=== PATIENT | female | born 1965 | race Caucasian/White ===

== ENCOUNTER 2020-12-01 21:45 | Emergency (ER) | payer OTHER, SELFPAY ==
[2020-12-01 21:46] VITALS: BP 154/78; PULSE 101; RESP 24; TEMP 36.8; O2SAT 96; BMI 42.0
[2020-12-01 21:49] VITALS: BMI 89.8
--- NOTE | 2020-12-01 21:51 | XR_ITS ---
PROCEDURE INFORMATION: Exam: XR Chest Exam date and time: 12/01/2020 9:51 PM Age: 55 years old Clinical indication: Cough and shortness of breath; Additional info: SOA, dry cough TECHNIQUE: Imaging protocol: XR of the chest. Views: 2 views. COMPARISON: No relevant prior studies available. FINDINGS: Lungs: Interstitial coarsening with patchy opacity within the right mid to lower lung zone. Pleural spaces: Unremarkable. No pleural effusion. No pneumothorax. Heart/Mediastinum: Prominent cardiac silhouette. Bones/joints: Unremarkable. IMPRESSION: Interstitial coarsening with patchy opacity within the right mid to lower lung zone which can be seen with pneumonitis or potentially asymmetric edema. Clinical correlation with follow-up to radiographic clearance is recommended.
--- NOTE | 2020-12-01 21:53 | ECG_ITS ---
APPROVED REPORT Exam: Resting ECG HR:100 bpm ECG Measurements Heart Rate 100 AXES MN 166 P 64 QRSd 82 QRS 38 QT 354 T 127 QTc 456 Conclusion Normal sinus rhythm Possible Left atrial enlargement ST & T wave abnormality, consider lateral ischemia Abnormal ECG Electronically signed by : Carlos Eduardo Stewart MD 12/03/2020 10:57:56
[2020-12-01 22:06] LABS: Coronavirus 19, PCR Not Detected (NotDetected); Influenza A, PCR Not Detected (NotDetected); Influenza B, PCR Not Detected (NotDetected)
[2020-12-01 22:12] LABS: Basophils # 0.1 K/mm3 (0-0.2); Basophils % 0.4 % (0.1-2.0); Eosinophils # 0.4 K/mm3 (0.0-0.4); Eosinophils % 1.9 % (0.1-12.0); Hematocrit 42.6 % (37.0-47.0); Hemoglobin 14.4 g/dL (12.2-16.2); Lymphocytes # 1.3 K/mm3 (0.7-4.5); Lymphocytes % 6.9 % (10-50); Mean Corpuscular HGB Conc 33.7 g/dL (31.8-35.4); Mean Corpuscular Hemoglobin 30.1 pg (27.0-31.2); Mean Corpuscular Volume 89.5 fl (81-99); Mean Platelet Volume 8.6 fl (7.4-10.4); Monocytes # 0.7 K/mm3 (0.1-1.0); Monocytes % 3.4 % (1.7-9.3); Neutrophils # 16.9 K/mm3 (1.8-7.8); Neutrophils % 87.4 % (37.0-80.0); Platelet Count 363 K/mm3 (142-424); Red Blood Count 4.76 M/mm3 (4.20-5.40); Red Cell Distribution Width 13.5 % (11.5-17.5); White Blood Count 19.3 K/mm3 (4.8-10.8)
[2020-12-01 22:14] LABS: MANUAL DIFFERENTIAL MANUAL DIFFERENTIAL (MANUAL DIFF)
[2020-12-01 22:19] LABS: Alanine Aminotransferase 23 U/L (12-78); Albumin Level 3.7 g/dl (3.5-5.0); Alkaline Phosphatase 165 U/L (38-126); Anion Gap 10.4 mEq/L (5-15); Aspartate Amino Transferase 40 U/L (14-36); Bilirubin,Total 0.9 mg/dl (0.2-1.3); Blood Urea Nitrogen 4 mg/dl (7-17); Calcium 8.9 mg/dl (8.4-10.2); Carbon Dioxide 29 mmol/L (22.0-30.0); Chloride 102 mmol/L (98-107); Creatinine Clearance Estimated 108 mL/min (50-200); Estimated Glomerular Filt Rate 129 ml/min (>60); GFR (African American) 156 ML/MIN (>60); Globulin 3.7 g/dL (1.3-3.2); Glucose 230 mg/dl (74-100); Magnesium 1.5 mg/dl (1.6-2.3); Potassium 3.4 mmoL/L (3.5-5.1); Sodium 138 mmol/L (136-145); Total Protein,Serum 7.4 g/dl (6.3-8.2)
[2020-12-01 22:22] LABS: Lymphocytes % 13 % (10-50); Monocytes % 4 % (2-9); Neutrophils % 71 % (42-76); Platelet Estimate Normal; RBC Morphology Normal; Total Cells Counted 100
--- NOTE | 2020-12-01 22:22 | HMH.EDSOB ---
ED Disposition Clinical Impression: Acute exacerbation of chronic obstructive airways disease Community acquired pneumonia Qualifiers: Laterality: right Lung location: lower lobe of lung Qualified Code(s): J18.9 - Pneumonia, unspecified organism Disposition: Left Against Medical Advice Condition on Discharge: Good Instructions: DI for Chronic Obstructive Pulmonary Disease Additional Instructions: use meds and recheck if needed Prescriptions: levoFLOXacin [Levaquin 500mg tab] 500 mg PO DAILY #7 tab Transmission Status: Pending to [facility] predniSONE [Prednisone 20mg Tab] 20 mg PO BID #10 tab Transmission Status: Pending to [facility] Benzonatate [Tessalon Perle 100mg Cap] 100 mg PO TID #30 cap Transmission Status: Pending to [facility] Referrals: Provider,Referral, [Primary Care Provider] - - Critical Care Critical Care Time: No Attestation: On , the high probability of a clinically significant, sudden or life threatening deterioration of the following system(s) required my full and direct attention, intervention and personal management. The time I documented below is in addition to time spent performing reported procedures but includes the following listed in this critical care notation. Medical Decision Making - Medical Records Medical records reviewed: Yes: I reviewed the patient's medical records. - Ray Inquiry Pt receiving controlled substance: No Vital Signs: 12/01/20 21:46 12/01/20 22:45 Temperature 98.3 F Temperature Source Oral Pulse Rate 100 H Pulse Rate [Right] 101 H Respiratory Rate 24 Blood Pressure [Left Arm] 154/78 H Blood Pressure Mean [Left Arm] 103 Blood Pressure Source [Left Arm] Automatic Cuff 02 Sat by Pulse Oximetry 96 Oxygen Delivery Method Room Air - Lab Data Lab results reviewed: Yes: I reviewed the patient's lab results. Lab Results 12/01/20 22:00: WBC 19.3 H, RBC 4.76, Hgb 14.4, Hct 42.6, MCV 89.5, MCH 30.1, MCHC 33.7, RDW 13.5, Plt Count 363, MPV 8.6, Neut % (Auto) 87.4 H, Lymph % (Auto) 6.9 L, [place] % (Auto) 3.4, Eos % (Auto) 1.9, Baso % (Auto) 0.4, Neut # (Auto) 16.9 H, Lymph # (Auto) 1.3, [place] # (Auto) 0.7, Eos # (Auto) 0.4, Baso # (Auto) 0.1, Total Counted 100, Neutrophils % (Manual) 71, Band Neutrophils % 12.0 H, Lymphocytes % (Manual) 13, Monocytes % (Manual) 4, Platelet Estimate Normal, RBC Morphology Normal, ESR 31 H 12/01/20 22:00: Sodium 138, Potassium 3.4 L, Chloride 102, Carbon Dioxide 29, Anion Gap 10.4, BUN 4 L, Creatinine 0.50 L, Estimated Creat Clear 108, Estimated GFR 129, Est GFR ( Amer) 156, Glucose 230 H, Calcium 8.9, Magnesium 1.5 L, Total Bilirubin 0.9, AST 40 H, ALT 23, Alkaline Phosphatase 165 H, Troponin I 0.02, C-Reactive Protein 276.8 H, NT-Pro-B Natriuret Pep 460 H, Total Protein 7.4, Albumin 3.7, Globulin 3.7 H, Albumin/Globulin Ratio 1.0 L, Procalcitonin 0.384 12/01/20 22:00: SARS-CoV-2 (PCR) Not detected, Influenza A Untype (PCR) Not detected, Influenza Type B (PCR) Not detected Result diagrams: 12/01/20 22:00 12/01/20 22:00 Orders (Tests/Meds): ED MEDICATIONS Generic Name Dose Route Start Last Admin Trade Name Freq PRN Reason Stop Dose Admin Sodium Chloride 1,000 mls @ 999 mls/hr 12/01/20 22:00 Sod Chlor 0.9% 1000ml Bag IV 12/01/20 23:00 .Q1H1M WILDER Discontinued Medications Generic Name Dose Route Start Last Admin Trade Name Freq PRN Reason Stop Dose Admin Albuterol/Ipratropium 3 ml 12/01/20 22:45 12/01/20 22:45 Ipratropium/Albuterol 3 Ml Neb IH 12/01/20 22:46 3 ml ONCE ONE Administration ORDERS Category Date Time Status Troponin I Q3H Lab 12/02/20 01:00 Ordered Troponin I Q3H Lab 12/02/20 04:00 Ordered Urinalysis and Microscopic Stat Lab 12/01/20 21:52 Ordered ECG Request by /Nse Stat Y 12/01/20 21:53 Ordered - Radiology Data #1 Image(s): Chest Image Reviewed: Yes I have reviewed radiologist's interpretati
[2020-12-01 22:24] LABS: C-Reactive Protein 276.8 mg/L (0-4)
[2020-12-01 22:34] LABS: NT Pro Brain Natriuretic Pep. 460 pg/mL (0-125); Troponin I 0.02 ng/ml (0.00-0.034)
[2020-12-01 22:38] LABS: Erythrocyte Sedimentation Rate 31 mm/hr (0-30); Procalcitonin 0.384 ng/mL (0.0-2.0)
[2020-12-01 22:45] VITALS: PULSE 100
--- NOTE | 2020-12-01 23:16 | PC.NURSE ---
Pt's IV has infiltrated, she refuses additional IV stick/placement. She has not received IV ABX yet, as she is refusing another IV. aware and ordered Levaquin PO. Pt has signed an AMA paper.
[2020-12-01 23:29] VITALS: BP 139/72; PULSE 90; RESP 22; TEMP 36.7; O2SAT 95
== END 2020-12-01 23:37 | disposition left against medical advice (07) ==
PROVIDERS: Emergency Provider Emergency Medicine
DX: J44.1 Chronic obstructive pulmonary disease with (acute) exacerbation (principal); J18.9 Pneumonia, unspecified organism; Z20.822 Contact with and (suspected) exposure to COVID-19; Z88.0 Allergy status to penicillin
CPT/HCPCS: 71046; 80053; 83735; 83880; 84145; 84484; 85007; 85025; 85651; 86140; 93005; 96365; 96375; 99283; C9803; U0003; U0005

== ENCOUNTER 2020-12-02 17:09 | Inpatient (IN) | payer OTHER, SELFPAY ==
[2020-12-02 17:10] VITALS: BP 161/89; PULSE 121; RESP 16; TEMP 36.8; O2SAT 93; BMI 45.1
--- NOTE | 2020-12-02 17:58 | XR_ITS ---
PROCEDURE INFORMATION: Exam: XR Chest Exam date and time: 12/02/2020 5:58 PM Age: 55 years old Clinical indication: Cough and shortness of breath and other: Pneumonia; Smoker's cough; Patient HX: Cough; SOA; Pneumonia; Smoker TECHNIQUE: Imaging protocol: XR of the chest. Views: 2 views. COMPARISON: CR XR CHEST 2V 12/01/2020 9:47 PM FINDINGS: Lungs: Airspace consolidation in the right middle lobe. Faint infiltrates also seen throughout the left lung. Pleural spaces: Unremarkable. No pleural effusion. No pneumothorax. Heart/Mediastinum: Unremarkable. No cardiomegaly. Bones/joints: Unremarkable. IMPRESSION: Bilateral pneumonia has worsened slightly.
[2020-12-02 18:30] VITALS: BP 151/74; PULSE 110; RESP 20; O2SAT 93
[2020-12-02 19:05] LABS: Basophils # 0.1 K/mm3 (0-0.2); Basophils % 0.3 % (0.1-2.0); Hematocrit 44.8 % (37.0-47.0); Lymphocytes # 0.7 K/mm3 (0.7-4.5); Lymphocytes % 3.8 % (10-50); Mean Corpuscular HGB Conc 33.5 g/dL (31.8-35.4); Mean Corpuscular Hemoglobin 29.6 pg (27.0-31.2); Mean Corpuscular Volume 88.4 fl (81-99); Mean Platelet Volume 9.3 fl (7.4-10.4); Monocytes # 0.5 K/mm3 (0.1-1.0); Monocytes % 2.6 % (1.7-9.3); Neutrophils # 17.3 K/mm3 (1.8-7.8); Neutrophils % 93.3 % (37.0-80.0); Platelet Count 427 K/mm3 (142-424); Red Blood Count 5.07 M/mm3 (4.20-5.40); Red Cell Distribution Width 13.5 % (11.5-17.5); White Blood Count 18.6 K/mm3 (4.8-10.8)
[2020-12-02 19:11] LABS: Alanine Aminotransferase 34 U/L (12-78); Albumin Level 4.1 g/dl (3.5-5.0); Alkaline Phosphatase 211 U/L (38-126); Anion Gap 15.1 mEq/L (5-15); Aspartate Amino Transferase 46 U/L (14-36); Bilirubin,Total 0.4 mg/dl (0.2-1.3); Blood Urea Nitrogen 8 mg/dl (7-17); Calcium 9.4 mg/dl (8.4-10.2); Carbon Dioxide 27 mmol/L (22.0-30.0); Chloride 100 mmol/L (98-107); Creatinine Clearance Estimated 102 mL/min (50-200); Estimated Glomerular Filt Rate 105 ml/min (>60); GFR (African American) 127 ML/MIN (>60); Potassium 3.1 mmoL/L (3.5-5.1); Sodium 139 mmol/L (136-145); Total Protein,Serum 8.1 g/dl (6.3-8.2)
[2020-12-02 19:18] LABS: Lactic Acid 2.2 mmol/L (0.7-2.1)
[2020-12-02 19:19] LABS: Glucose 434 mg/dl (74-100)
[2020-12-02 19:27] LABS: MANUAL DIFFERENTIAL MANUAL DIFFERENTIAL (MANUAL DIFF)
[2020-12-02 19:40] LABS: Lymphocytes % 2 % (10-50); Monocytes % 3 % (2-9); Neutrophils % 95 % (42-76); Total Cells Counted 100
[2020-12-02 19:41] LABS: Platelet Estimate Normal; RBC Morphology Normal
--- NOTE | 2020-12-02 19:44 | PC.NURSE ---
RESP CALLED FOR NEB
--- NOTE | 2020-12-02 19:52 | HMH.EDGENADL ---
ED Disposition Clinical Impression: Hyperglycemia PNA (pneumonia) Qualifiers: Pneumonia type: due to unspecified organism Laterality: bilateral Lung location: unspecified part of lung Qualified Code(s): J18.9 - Pneumonia, unspecified organism Sepsis Qualifiers: Sepsis type: sepsis due to unspecified organism Sepsis acute organ dysfunction status: without acute organ dysfunction Qualified Code(s): A41.9 - Sepsis, unspecified organism Disposition: Admitted As Inpatient Condition on Discharge: Good Referrals: Provider,Referral, MD [Primary Care Provider] - Time of Disposition: 20:13 - Critical Care Critical Care Time: Yes (35) Attestation: On 12/02/20, the high probability of a clinically significant, sudden or life threatening deterioration of the following system(s) required my full and direct attention, intervention and personal management. The time I documented below is in addition to time spent performing reported procedures but includes the following listed in this critical care notation. Vital system(s) involved:: Respiratory Failure My critical care processes included: Assessment & monitoring of V/S, Initial and Re-exams, Data Review/Interpretation, Coordinating Care, Medication Orders and management, Documentation Medical Decision Making - Medical Records Medical records reviewed: Yes: I reviewed the patient's medical records. - Ray Inquiry Pt receiving controlled substance: No Vital Signs: 12/02/20 17:10 Temperature 98.2 F Temperature Source Oral Pulse Rate [Right Radial] 121 H Respiratory Rate 16 Blood Pressure [Left Arm] 161/89 H Blood Pressure Mean [Left Arm] 113 Blood Pressure Source [Left Arm] Automatic Cuff Blood Pressure Position [Left Arm] Sitting 02 Sat by Pulse Oximetry 93 L Oxygen Delivery Method Room Air - Lab Data Lab results reviewed: Yes: I reviewed the patient's lab results. Lab Results 12/02/20 18:35: WBC 18.6 H, RBC 5.07, Hgb 15.0, Hct 44.8, MCV 88.4, MCH 29.6, MCHC 33.5, RDW 13.5, Plt Count 427 H, MPV 9.3, Neut % (Auto) 93.3 H, Lymph % (Auto) 3.8 L, [place] % (Auto) 2.6, Eos % (Auto) 0.0 L, Baso % (Auto) 0.3, Neut # (Auto) 17.3 H, Lymph # (Auto) 0.7, [place] # (Auto) 0.5, Eos # (Auto) 0.0, Baso # (Auto) 0.1, Total Counted 100, Neutrophils % (Manual) 95 H, Lymphocytes % (Manual) 2 L, Monocytes % (Manual) 3, Platelet Estimate Normal, RBC Morphology Normal 12/02/20 18:35: Sodium 139, Potassium 3.1 L, Chloride 100, Carbon Dioxide 27, Anion Gap 15.1 H, BUN 8 D, Creatinine 0.60, Estimated Creat Clear 102, Estimated GFR 105, Est GFR ( Amer) 127, Glucose 434 H* D, Calcium 9.4, Total Bilirubin 0.4, AST 46 H, ALT 34 D, Alkaline Phosphatase 211 H, Total Protein 8.1, Albumin 4.1 D, Globulin 4.0 H, Albumin/Globulin Ratio 1.0 L 12/02/20 18:35: Lactate 2.2 H Result diagrams: 12/02/20 18:35 12/02/20 18:35 Orders (Tests/Meds): ED MEDICATIONS Generic Name Dose Route Start Last Admin Trade Name Freq PRN Reason Stop Dose Admin Lactated Ringer's 1,000 mls @ 999 mls/hr 12/02/20 19:30 12/02/20 19:27 Lactated Ringer's 1000 Ml Bag IV 12/02/20 20:30 999 mls/hr .Q1H1M WILDER Administration Levofloxacin/Dextrose 750 mg in 150 mls @ 100 mls/hr 12/02/20 20:00 Levofloxacin 750mg/150ml Premix IV 12/16/20 19:59 Q24H WILDER Discontinued Medications Generic Name Dose Route Start Last Admin Trade Name Freq PRN Reason Stop Dose Admin Albuterol/Ipratropium 3 ml 12/02/20 19:41 Ipratropium/Albuterol 3 Ml Neb IH 12/02/20 19:42 ONCE ONE ORDERS Category Date Time Status Blood Culture Stat Micro 12/02/20 18:35 Received - Radiology Data #1 Image(s): Chest Image Reviewed: Yes I reviewed the patient's radiology results Preliminary Findings: Abnormal bilateral pna Medical Decision Narrative: 55yo F presents for worsening shortness of breath. Patient is a white count of 18.69 with a lactic acid of 2.2. Chest x-ray shows worsening bilateral pneumonia.
[2020-12-02 20:43] VITALS: BMI 37.1
--- NOTE | 2020-12-02 21:56 | PC.NURSE ---
PT ARRIVED TO FLOOR VIA W/C FROM ED W/STAFF AT 0230
[2020-12-02 21:59] VITALS: BP 154/74; PULSE 115; RESP 24; TEMP 37.2; O2SAT 92
[2020-12-02 22:00] VITALS: BP 190/109; PULSE 122; RESP 24; TEMP 36.9; O2SAT 92
[2020-12-02 22:41] LABS: Reflex Lactic Add Lactic Reflex
[2020-12-02 22:47] LABS: POC Glucose,Bedside 330 (70-110)
[2020-12-02 23:07] LABS: Lactic Acid Follow Up (RFLX 1) 2.4 mmol/L (0.7-2.1)
[2020-12-03] VITALS (14 sets, daily range): BP systolic 147–242; BP diastolic 81–151; PULSE 80–127; RESP 22–34; TEMP 36.5–37.3; O2SAT 91–95; BMI 37.1
[2020-12-03 00:21] LABS: Reflex Lactic (2 hrs) Add Lactic Reflex
[2020-12-03 01:08] LABS: Lactic Acid Follow up (RFLX 2) 2.3 mmol/L (0.7-2.1)
--- NOTE | 2020-12-03 03:58 | PC.NURSE ---
Pt is A/O x4. Pt had a persistent cough t/o shift, pt states duo-neb did help. Pt has not rested at all this shift. Pt still feels SOB at times, O2 remains 92-94%. Pt can take herself to bathroom independently. VSS, call light within reach, will continue to monitor.
[2020-12-03 04:50] LABS: Coronavirus 19, PCR Not Detected (NotDetected); Influenza A, PCR Not Detected (NotDetected); Influenza B, PCR Not Detected (NotDetected)
[2020-12-03 05:47] LABS: POC Glucose,Bedside 311 (70-110)
[2020-12-03 07:04] LABS: Basophils # 0.1 K/mm3 (0-0.2); Basophils % 0.3 % (0.1-2.0); Eosinophils # 0.1 K/mm3 (0.0-0.4); Eosinophils % 0.3 % (0.1-12.0); Hematocrit 42.4 % (37.0-47.0); Lymphocytes # 1.2 K/mm3 (0.7-4.5); Lymphocytes % 5.3 % (10-50); Mean Corpuscular HGB Conc 32.9 g/dL (31.8-35.4); Mean Corpuscular Hemoglobin 29.4 pg (27.0-31.2); Mean Corpuscular Volume 89.4 fl (81-99); Mean Platelet Volume 8.6 fl (7.4-10.4); Monocytes # 0.8 K/mm3 (0.1-1.0); Monocytes % 3.7 % (1.7-9.3); Neutrophils # 19.6 K/mm3 (1.8-7.8); Neutrophils % 90.4 % (37.0-80.0); Platelet Count 415 K/mm3 (142-424); Red Blood Count 4.74 M/mm3 (4.20-5.40); Red Cell Distribution Width 13.4 % (11.5-17.5); White Blood Count 21.7 K/mm3 (4.8-10.8)
[2020-12-03 07:20] LABS: MANUAL DIFFERENTIAL MANUAL DIFFERENTIAL (MANUAL DIFF)
--- NOTE | 2020-12-03 07:33 | HMH.HP ---
*Admission Date: 12/02/20 *Chief complaint: Cough *History of present illness: 55-year-old female presented to the emergency department for the second time in a 24-hour. With 2 days of chills without fevers and unrelenting cough. Patient had been seen in the emergency department the evening prior and diagnosed with pneumonia. She had refused admission at that time due to caring for her significant other at home. Her significant other has ended up hospitalized within the last 24 hours and patient return to the emergency department as well. Patient was found to have elevated white blood cell count along with findings of bilateral pneumonia. She was not requiring any supplemental oxygen. Patient has been admitted for observation, IV antibiotics. Patient has a past medical history of HI in August of this year. Her last A1c was 8.7. Despite a long history of smoking anywhere from 1/2 pack to 3 packs/day since the age of 9 patient claims she recently had a pulmonary evaluation and was told she did not have COPD. Patient's primary residence is [facility]. [facility] History I have reviewed the patient's past medical history: Yes Medical History: Reports:: Diabetes Mellitus Type 2, Hyperlipidemia, Hypertension Denies:: Cancer, MRSA *Have you ever received a pneumonia vaccine?: No *Have you received a flu vaccine this season?: No Other Medical History: Reports: Arthritis Other Surgeries: Yes: Appendectomy, Cardiac Catheterization, Cholecystectomy, Colonoscopy, EGD, Hysterectomy-Partial, Tubal Ligation Amputation: No Fractures: No - *Social History Last grade of school completed: Advanced degree Smoking Status: Current every day smoker Tobacco Type: cigarettes # Packs/Day (cigarettes): 1 Alcohol Intake: former Substance Use Type: marijuana *Occupational Status:: disabled Housing: house Household Members: significant other *Travel in the last 8 weeks: None Family Hx:: No significant family history Review of Systems - Review of Systems Review of systems:: pertinent systems reviewed and negative unless documented below Meds Home Medications Medication Instructions Recorded Confirmed Type Benzonatate [Tessalon Perle 100mg 100 mg PO TID #30 cap 12/01/20 12/03/20 Rx Cap] Insulin Glargine,Hum.rec.anlog 70 unit SQ DIRECTED 12/01/20 12/03/20 History [Lantus] levoFLOXacin [Levaquin 500mg 500 mg PO DAILY #7 tab 12/01/20 12/03/20 Rx tab] predniSONE [Prednisone 20mg 20 mg PO BID #10 tab 12/01/20 12/03/20 Rx Tab] Amlodipine Besylate 10 mg PO DAILY 12/03/20 12/03/20 History Atorvastatin Calcium [Lipitor 40mg 40 mg PO HS 12/03/20 12/03/20 History Tab] Clopidogrel Bisulfate [Clopidogrel 75 mg PO DAILY 12/03/20 12/03/20 History 75mg Tab] Metoprolol Tartrate [Lopressor 100 100 mg PO BID 12/03/20 12/03/20 History mg Tablets] Nitroglycerin 0.4 mg SL NEEDED PRN 12/03/20 12/03/20 History Pregabalin [Lyrica 300mg Cap] 300 mg PO BID 12/03/20 12/03/20 History hydrOXYzine pamoate [Vistaril] 25 mg PO DAILY 12/03/20 12/03/20 History lisinopriL [Lisinopril] 40 mg PO DAILY 12/03/20 12/03/20 History Allergies Allergy/AdvReac Type Severity Reaction Status Date / Time Penicillins Allergy Verified 12/01/20 21:51 ketorolac [From Toradol] AdvReac Verified 12/01/20 21:51 metformin AdvReac Verified 12/01/20 21:51 Exam Vital signs and Labs for Last 24 Hours: Temp Pulse Resp BP Pulse Ox 98.3 F 102 H 22 147/96 H 95 12/03/20 04:00 12/03/20 06:06 12/03/20 04:00 12/03/20 04:00 12/03/20 04:00 Laboratory Results - last 24 hr 12/02/20 18:35: WBC 18.6 H, RBC 5.07, Hgb 15.0, Hct 44.8, MCV 88.4, MCH 29.6, MCHC 33.5, RDW 13.5, Plt Count 427 H, MPV 9.3, Neut % (Auto) 93.3 H, Lymph % (Auto) 3.8 L, [place] % (Auto) 2.6, Eos % (Auto) 0.0 L, Baso % (Auto) 0.3, Neut # (Auto) 17.3 H, Lymph # (Auto) 0.7, [place] # (Auto) 0.5, Eos # (Auto) 0.0, Baso # (Auto) 0.1, Total Counted 100, Neutrophils % (Manual) 9
--- NOTE | 2020-12-03 07:56 | HMH.PHACONS ---
- Pharmacy Consult Date: 12/03/20 Time: 07:56 Referring provider: DR. YUAN Reason for Consult:: VANCOMYCIN DOSING Allergies and ADEs:: Allergies Allergy/AdvReac Type Severity Reaction Status Date / Time Penicillins Allergy Verified 12/01/20 21:51 ketorolac [From Toradol] AdvReac Verified 12/01/20 21:51 metformin AdvReac Verified 12/01/20 21:51 Home Medications:: Home Medications Medication Instructions Recorded Confirmed Type Benzonatate [Tessalon Perle 100mg 100 mg PO TID #30 cap 12/01/20 12/03/20 Rx Cap] Insulin Glargine,Hum.rec.anlog 70 unit SQ DIRECTED 12/01/20 12/03/20 History [Lantus] levoFLOXacin [Levaquin 500mg 500 mg PO DAILY #7 tab 12/01/20 12/03/20 Rx tab] predniSONE [Prednisone 20mg 20 mg PO BID #10 tab 12/01/20 12/03/20 Rx Tab] Amlodipine Besylate 10 mg PO DAILY 12/03/20 12/03/20 History Atorvastatin Calcium [Lipitor 40mg 40 mg PO HS 12/03/20 12/03/20 History Tab] Clopidogrel Bisulfate [Clopidogrel 75 mg PO DAILY 12/03/20 12/03/20 History 75mg Tab] Metoprolol Tartrate [Lopressor 100 100 mg PO BID 12/03/20 12/03/20 History mg Tablets] Nitroglycerin 0.4 mg SL NEEDED PRN 12/03/20 12/03/20 History Pregabalin [Lyrica 300mg Cap] 300 mg PO BID 12/03/20 12/03/20 History hydrOXYzine pamoate [Vistaril] 25 mg PO DAILY 12/03/20 12/03/20 History lisinopriL [Lisinopril] 40 mg PO DAILY 12/03/20 12/03/20 History Height: 1.68 m Weight: 104.825 kg Laboratory Results:: Laboratory Results - last 24 hr 12/02/20 18:35: WBC 18.6 H, RBC 5.07, Hgb 15.0, Hct 44.8, MCV 88.4, MCH 29.6, MCHC 33.5, RDW 13.5, Plt Count 427 H, MPV 9.3, Neut % (Auto) 93.3 H, Lymph % (Auto) 3.8 L, [place] % (Auto) 2.6, Eos % (Auto) 0.0 L, Baso % (Auto) 0.3, Neut # (Auto) 17.3 H, Lymph # (Auto) 0.7, [place] # (Auto) 0.5, Eos # (Auto) 0.0, Baso # (Auto) 0.1, Total Counted 100, Neutrophils % (Manual) 95 H, Lymphocytes % (Manual) 2 L, Monocytes % (Manual) 3, Platelet Estimate Normal, RBC Morphology Normal 12/02/20 18:35: Sodium 139, Potassium 3.1 L, Chloride 100, Carbon Dioxide 27, Anion Gap 15.1 H, BUN 8 D, Creatinine 0.60, Estimated Creat Clear 102, Estimated GFR 105, Est GFR ( Amer) 127, Glucose 434 H* D, Calcium 9.4, Total Bilirubin 0.4, AST 46 H, ALT 34 D, Alkaline Phosphatase 211 H, Total Protein 8.1, Albumin 4.1 D, Globulin 4.0 H, Albumin/Globulin Ratio 1.0 L 12/02/20 18:35: Lactate 2.2 H 12/02/20 22:35: POC Glucose 330 H* 12/02/20 22:50: Lactate 2.4 H 12/03/20 00:00: SARS-CoV-2 (PCR) Not detected, Influenza A Untype (PCR) Not detected, Influenza Type B (PCR) Not detected 12/03/20 00:34: Lactate 2.3 H 12/03/20 05:16: POC Glucose 311 H* 12/03/20 06:51: WBC 21.7 H*, RBC 4.74, Hgb 14.0, Hct 42.4, MCV 89.4, MCH 29.4, MCHC 32.9, RDW 13.4, Plt Count 415, MPV 8.6, Neut % (Auto) 90.4 H, Lymph % (Auto) 5.3 L, [place] % (Auto) 3.7, Eos % (Auto) 0.3, Baso % (Auto) 0.3, Neut # (Auto) 19.6 H, Lymph # (Auto) 1.2, [place] # (Auto) 0.8, Eos # (Auto) 0.1, Baso # (Auto) 0.1 Medical History: Reports:: Chronic Obstructive Pulmonary Disease (COPD), Diabetes Mellitus Type 1, Diabetes Mellitus Type 2, Hyperlipidemia, Hypertension Denies:: Cancer, MRSA Assessment and Plan (1) Type 2 diabetes mellitus with hyperglycemia Status: Acute Category: Medical Code(s): E11.65 - Type 2 diabetes mellitus with hyperglycemia (2) PNA (pneumonia) Status: Acute Qualifiers: Pneumonia type: due to unspecified organism Laterality: bilateral Lung location: unspecified part of lung Qualified Code(s): J18.9 - Pneumonia, unspecified organism Category: Medical Code(s): J18.9 - Pneumonia, unspecified organism - Assessment and plan all Dx Assessment and Plan for all problems:: Pharmacokinetic dosing service Objective: Patient: Floor: Age: 55 yo Serum creatinine: 0.60 mg/dL Height: 66.1 Inches Weight (kg): 104.8 Assessment: ===
--- NOTE | 2020-12-03 08:01 | P.CONPHA_ITS ---
[facility] Pharmacy VTE Monitoring - Patient Demographics Admission date: 12/03/20 Report Date: 12/03/20 Time: 08:01 Allergies/Adverse Reactions: Patient Allergies Penicillins Allergy (Verified 12/01/20 21:51) ketorolac [From Toradol] Adverse Reaction (Verified 12/01/20 21:51) metformin Adverse Reaction (Verified 12/01/20 21:51) Height: 1.68 m Weight: 104.825 kg Patient Problems: Current Active Problems PNA (pneumonia) (Acute) Sepsis (Acute) Hyperglycemia (Acute) Type 2 diabetes mellitus with hyperglycemia (Acute) - VTE Risk Labs: VTE Related Lab Results Hgb 14.0 g/dL (12.2-16.2) 12/03/20 06:51 Hct 42.4 % (37.0-47.0) 12/03/20 06:51 Plt Count 415 K/mm3 (142-424) 12/03/20 06:51 BUN 8 mg/dl (7-17) D 12/02/20 18:35 Creatinine 0.60 mg/dl (0.52-1.04) 12/02/20 18:35 Estimated Creat Clear 102 mL/min (50-200) 12/02/20 18:35 Was VTE Risk Assessment Performed: Yes VTE Score: 5 VTE Risk Level: Low Risk Clinical Trial Participant: No - Prophylaxis VTE Prophylaxis Ordered?: Yes Types of VTE Prophylaxis: TEDS Knee High, Pharmacological Pharmacologic Type: Enoxaparin
[2020-12-03 08:06] LABS: Anion Gap 12.4 mEq/L (5-15); Blood Urea Nitrogen 11 mg/dl (7-17); Calcium 9.1 mg/dl (8.4-10.2); Carbon Dioxide 28 mmol/L (22.0-30.0); Chloride 101 mmol/L (98-107); Creatinine Clearance Estimated 179 mL/min (50-200); Estimated Glomerular Filt Rate 105 ml/min (>60); GFR (African American) 127 ML/MIN (>60); Glucose 302 mg/dl (74-100); Potassium 3.4 mmoL/L (3.5-5.1); Sodium 138 mmol/L (136-145)
[2020-12-03 09:27] LABS: Lymphocytes % 1 % (10-50); Monocytes % 6 % (2-9); Neutrophils % 93 % (42-76); Nucleated Red Blood Cells 1; Total Cells Counted 100
[2020-12-03 09:28] LABS: Hypochromasia 1+; Macrocytosis 1+; Platelet Estimate Normal
--- NOTE | 2020-12-03 09:32 | HMH.PHAINT ---
MEDICATION RECONCILIATION COMPLETE USING INFORMATION GATHERED FROM TALKING TO THE PATIENT
[2020-12-03 11:19] LABS: POC Glucose,Bedside 328 (70-110)
--- NOTE | 2020-12-03 12:14 | PC.NURSE ---
NEWEST IV IN [place] HAS INFILTRATED. IVF STOPPED. ATTEMPTED TO RUN VANCOMYCIN IN L A/C IV BUT THAT IV CONTINUNOUSLY ALARMS. INFUSIONS STOPPED. ATTEMPT TO CALL DR YUAN, OFFICE CLOSED FOR LUNCH. WILL CONTACT MD WHEN OFFICE REOPENS TO UPDATE. PT IS COOPERATIVE AND PLEASANT, TOLERATING WELL.
--- NOTE | 2020-12-03 16:09 | PC.NURSE ---
HYDRALAZINE 20MG IV PER PRN PARAMTERS FOR BP 264/151. PT RESTING A LITTLE BETTER NOW, DOZING OFF AND ON, COUGHING LESS.
[2020-12-03 16:42] LABS: POC Glucose,Bedside 263 (70-110)
--- NOTE | 2020-12-03 18:56 | PC.NURSE ---
PT DOING BETTER AT PRESENT, COUGHING LESS, VERBALIZES PAIN IS BETTER. RESTING IN BED AT PRESENT, SIPPING ON PEPSI.
[2020-12-04] VITALS (9 sets, daily range): BP systolic 156–183; BP diastolic 80–98; PULSE 58–112; RESP 24–28; TEMP 36.5–38.5; O2SAT 90–98; BMI 37.1; BMI 37.2
[2020-12-04 05:08] LABS: POC Glucose,Bedside 117 (70-110)
--- NOTE | 2020-12-04 05:25 | PC.NURSE ---
A&OX4. TOLERATING 2LNC WELL T/O SHIFT. PT TAKES OFF OXYGEN MULTIPLE TIMES AND REQUIRES REDIRECTING. PT HAS HAD HIGH ANXIETY T/O MOST OF SHIFT. CONTACTED COOK SOUP MD RODRIGUEZ, RECEIVED ORDER FOR X1 DOSE OF LORAZEPAM. THIS DID NOT SEEM TO HELP PATIENT. SHE DID REQUEST HER PAIN PILL X2 THIS SHIFT. PT IS NOW RESTING WITH EYES CLOSED ON SIDE OF BED. PT SAYS SHE SLEEPS SITTING UP AT HOME. PT HAS HAD INTERMITTENT NON-PRODUCTIVE COUGH. PT 0400 SYSTOLIC BP WAS 183-ADMINISTERED PRN MED PER APR. NO OTHER C/O THUS FAR. VSS WILL CONTINUE TO MONITOR.
--- NOTE | 2020-12-04 07:00 | P.PN_ITS ---
Internal Medicine - PN: Subj *Date: 12/04/20 *Time: 07:00 Interval history: Patient developed mild hypoxia yesterday afternoon with drop in O2 sat to 87% which required application of supplemental O2 via nasal cannula. With nasal cannula O2 sats are in the mid to low 90s. Patient has had significant anxiety during hospitalization which did not respond to lorazepam. Exam Vital signs and Labs for Last 24 Hours: Temp Pulse Resp BP Pulse Ox 98.1 F 110 H 24 183/80 H 94 L 12/04/20 04:00 12/04/20 06:11 12/04/20 04:00 12/04/20 04:00 12/04/20 04:00 Laboratory Results - last 24 hr 12/03/20 06:51: WBC 21.7 H*, RBC 4.74, Hgb 14.0, Hct 42.4, MCV 89.4, MCH 29.4, MCHC 32.9, RDW 13.4, Plt Count 415, MPV 8.6, Neut % (Auto) 90.4 H, Lymph % (Auto) 5.3 L, [place] % (Auto) 3.7, Eos % (Auto) 0.3, Baso % (Auto) 0.3, Neut # (Auto) 19.6 H, Lymph # (Auto) 1.2, [place] # (Auto) 0.8, Eos # (Auto) 0.1, Baso # (Auto) 0.1, Total Counted 100, Neutrophils % (Manual) 93 H, Lymphocytes % (Manual) 1 L, Monocytes % (Manual) 6, Nucleated RBCs 1, Platelet Estimate Normal, Hypochromasia 1+, Macrocytosis 1+ 12/03/20 06:51: Sodium 138, Potassium 3.4 L, Chloride 101, Carbon Dioxide 28, Anion Gap 12.4, BUN 11 D, Creatinine 0.60, Estimated Creat Clear 179, Estimated GFR 105, Est GFR ( Amer) 127, Glucose 302 H D, Calcium 9.1 12/03/20 11:07: POC Glucose 328 H* 12/03/20 16:18: POC Glucose 263 H 12/04/20 05:00: POC Glucose 117 H I & O for Last 24 hours: Intake & Output 12/01/20 12/02/20 12/03/20 12/04/20 11:59 11:59 11:59 11:59 Intake Total 840 / 840 480 / 480 Balance 840 / 840 480 / 480 Weight 231 lb 1.6 oz 231 lb 1 oz Narrative: Patient is anxious in appearance. Lungs have fair aeration with rhonchi and wheezing throughout all lung salguero. Heart has a regular rate and rhythm. Abdomen is soft. Assessment and Plan (1) PNA (pneumonia) Status: Acute Qualifiers: Pneumonia type: due to unspecified organism Laterality: bilateral Lung lo cation: unspecified part of lung Qualified Code(s): J18.9 - Pneumonia, unspecified organism Category: Medical Code(s): J18.9 - Pneumonia, unspecified organism (2) Type 2 diabetes mellitus with hyperglycemia Status: Acute Category: Medical Code(s): E11.65 - Type 2 diabetes mellitus with hyperglycemia - Assessment and plan all Dx Assessment and Plan for all problems:: IV steroids will be added to patient's regimen. Continue duo nebs. Add guaifenesin and chest physiotherapy
[2020-12-04 10:39] LABS: Basophils # 0.1 K/mm3 (0-0.2); Basophils % 1.1 % (0.1-2.0); Eosinophils # 0.3 K/mm3 (0.0-0.4); Hematocrit 44.8 % (37.0-47.0); Hemoglobin 14.9 g/dL (12.2-16.2); Lymphocytes # 1.3 K/mm3 (0.7-4.5); Lymphocytes % 10.2 % (10-50); Mean Corpuscular HGB Conc 33.2 g/dL (31.8-35.4); Mean Corpuscular Hemoglobin 29.5 pg (27.0-31.2); Mean Corpuscular Volume 88.9 fl (81-99); Mean Platelet Volume 8.5 fl (7.4-10.4); Monocytes # 0.3 K/mm3 (0.1-1.0); Monocytes % 2.4 % (1.7-9.3); Neutrophils # 10.9 K/mm3 (1.8-7.8); Neutrophils % 84.2 % (37.0-80.0); Platelet Count 399 K/mm3 (142-424); Red Blood Count 5.03 M/mm3 (4.20-5.40); Red Cell Distribution Width 13.4 % (11.5-17.5); White Blood Count 12.9 K/mm3 (4.8-10.8)
[2020-12-04 11:45] LABS: POC Glucose,Bedside 115 (70-110)
[2020-12-04 13:15] LABS: Adenovirus,PCR Not Detected (NotDetected); Bordetella Pertussis Not Detected (NotDetected); Chlamydophila Pneumoniae, PCR Not Detected (NotDetected); Coronavirus 19, PCR Not Detected (NotDetected); Coronavirus 229E Not Detected (NotDetected); Coronavirus NL63 Not Detected (NotDetected); Coronavirus OC43 Not Detected (NotDetected); Coronovirus HKU1,PCR Not Detected (NotDetected); Human Metapneumovirus Not Detected (NotDetected); Influenza A, PCR Not Detected (NotDetected); Influenza AH1, 2009 Not Detected (NotDetected); Influenza AH1, PCR Not Detected (NotDetected); Influenza AH3,PCR Not Detected (NotDetected); Influenza B, PCR Not Detected (NotDetected); Mycoplasma Pneumoniae, PCR Not Detected (NotDetected); Parainfluenza 1, PCR Not Detected (NotDetected); Parainfluenza 2, PCR Not Detected (NotDetected); Parainfluenza 3, PCR Not Detected (NotDetected); Parainfluenza 4, PCR Not Detected (NotDetected); Rhinovirus/Enterovirus Not Detected (NotDetected)
[2020-12-04 15:18] LABS: Respiratory Syncytial Virus Detected (NotDetected)
[2020-12-04 17:04] LABS: POC Glucose,Bedside 177 (70-110)
--- NOTE | 2020-12-04 18:10 | PC.NURSE ---
PT IS RESTING IN BED. THIS MORNING PT WAS VERY DROWSY. PT HAD AUDIBLE WHEEZES, HR 120'S AND TEMP 101.3. PT WAS MEDICATED WITH TYLENOL FOR FEVER. PCP WAS NOTIFIED. CBC/PCR WITH COVID WAS ORDERED. RSV DETECTED. LATER IN THE AFTERNOON PT BECAME MORE AWAKE BUT STATES SHE STILL DOESN'T FEEL WELL. EATING AND DRINKING FAIR. 1+ EDEMA NOTED TO BLE. PT HAS BEEN GETTING UP TO THE BSC TO VOID. PT DID EAT DINNER BUT REFUSED BREAKFAST AND LUNCH. WILL CONTINUE TO MONITOR.
[2020-12-04 20:56] LABS: POC Glucose,Bedside 310 (70-110)
[2020-12-05] VITALS (7 sets, daily range): BP systolic 119–197; BP diastolic 68–112; PULSE 78–110; RESP 18–24; TEMP 36.6–36.9; O2SAT 90–97; BMI 37.1
[2020-12-05 03:28] LABS: Vancomycin,Peak 32.6 ug/ml (11-39)
--- NOTE | 2020-12-05 04:54 | PC.NURSE ---
A&OX4. PT TOLERATING 2LNC WELL. RA OF 85%. RECOVERS QUICKLY. PT HAS HAD DRY INTERMITTENT COUGH T/O SHIFT. NO SPUTUM PRODUCED. PT HAS SLEPT BETTER TONIGHT THAN LAST NIGHT. DID ADMINISTER PRN ANXIETY MED PER APR. ON REASSESSMENT, PT RESTING IN BED. PT HAS ALSO RECEIVED PRN MED FOR COUGH Q6H PER APR. PT 0400 SYSTOLIC BP 197-RECEIVED PRN DOSE OF HYDRALAZINE. NO OTHER C/O THUS FAR, VSS WILL CONTINUE TO MONITOR. IN DROPLET PRECAUTIONS FOR RSV.
[2020-12-05 05:22] LABS: POC Glucose,Bedside 255 (70-110)
[2020-12-05 06:47] LABS: Basophils # 0.1 K/mm3 (0-0.2); Eosinophils % 0.5 % (0.1-12.0); Hemoglobin 14.9 g/dL (12.2-16.2); Lymphocytes # 1.1 K/mm3 (0.7-4.5); Lymphocytes % 12.2 % (10-50); Mean Corpuscular HGB Conc 33.2 g/dL (31.8-35.4); Mean Corpuscular Volume 90.2 fl (81-99); Mean Platelet Volume 9.4 fl (7.4-10.4); Monocytes # 0.4 K/mm3 (0.1-1.0); Monocytes % 4.1 % (1.7-9.3); Neutrophils # 7.4 K/mm3 (1.8-7.8); Neutrophils % 82.2 % (37.0-80.0); Platelet Count 409 K/mm3 (142-424); Red Blood Count 4.98 M/mm3 (4.20-5.40)
[2020-12-05 07:07] LABS: Chloride 100 mmol/L (98-107)
[2020-12-05 07:08] LABS: Potassium 4.4 mmoL/L (3.5-5.1); Sodium 136 mmol/L (136-145)
[2020-12-05 07:11] LABS: Blood Urea Nitrogen 14 mg/dl (7-17); Calcium 8.7 mg/dl (8.4-10.2); Carbon Dioxide 29 mmol/L (22.0-30.0); Creatinine Clearance Estimated 269 mL/min (50-200); Estimated Glomerular Filt Rate 167 ml/min (>60); GFR (African American) 202 ML/MIN (>60); Glucose 266 mg/dl (74-100)
--- NOTE | 2020-12-05 07:24 | HMH.ACPN2 ---
Internal Medicine - PN: Subj *Date: 12/05/20 *Time: 07:24 Interval history: Patient remains frustrated by her cough that is not responded to breathing treatments or cough suppressants. Upper respiratory panel yesterday revealed RSV as the source of the patient's infection. O2 sats remained in the mid 80s on room air. Exam Vital signs and Labs for Last 24 Hours: Temp Pulse Resp BP Pulse Ox 98.3 F 91 H 20 197/112 H 91 L 12/05/20 03:54 12/05/20 06:00 12/05/20 03:54 12/05/20 03:54 12/05/20 06:00 Laboratory Results - last 24 hr 12/04/20 10:31: WBC 12.9 H D, RBC 5.03, Hgb 14.9, Hct 44.8, MCV 88.9, MCH 29.5, MCHC 33.2, RDW 13.4, Plt Count 399, MPV 8.5, Neut % (Auto) 84.2 H, Lymph % (Auto) 10.2, [place] % (Auto) 2.4, Eos % (Auto) 2.0, Baso % (Auto) 1.1, Neut # (Auto) 10.9 H, Lymph # (Auto) 1.3, [place] # (Auto) 0.3, Eos # (Auto) 0.3, Baso # (Auto) 0.1 12/04/20 11:28: POC Glucose 115 H 12/04/20 13:08: Chlamy pneumoniae PCR Not detected, Adenovirus (PCR) Not detected, B. pertussis DNA (PCR) Not detected, Coronavirus OC43 (PCR) Not detected, Coronavirus HKU1 (PCR) Not detected, Coronavirus 229E (PCR) Not detected, SARS-CoV-2 (PCR) Not detected, Coronavirus NL63 (PCR) Not detected, Human Metapneumovir PCR Not detected, Influenza A (H1) PCR Not detected, Influ A (H1N1/09) PCR Not detected, Influenza A (H3) PCR Not detected, Influenza Type A (PCR) Not detected, Influenza Type B (PCR) Not detected, M. pneumoniae (PCR) Not detected, Parainfluenza 1 (PCR) Not detected, Parainfluenza 2 (PCR) Not detected, Parainfluenza 3 (PCR) Not detected, Parainfluenza 4 (PCR) Not detected, RSV (PCR) Detected A, Entero/Rhino (PCR) Not detected 12/04/20 16:45: POC Glucose 177 H 12/04/20 20:44: POC Glucose 310 H* 12/04/20 22:00: Vancomycin Trough 11.0 H 12/05/20 02:30: Vancomycin Peak 32.6 12/05/20 05:12: POC Glucose 255 H 12/05/20 06:35: WBC 9.0 D, RBC 4.98, Hgb 14.9, Hct 45.0, MCV 90.2, MCH 30.0, MCHC 33.2, RDW 14.0, Plt Count 409, MPV 9.4, Neut % (Auto) 82.2 H, Lymph % (Auto) 12.2, [place] % (Auto) 4.1, Eos % (Auto) 0.5, Baso % (Auto) 1.0, Neut # (Auto) 7.4, Lymph # (Auto) 1.1, [place] # (Auto) 0.4, Eos # (Auto) 0.0, Baso # (Auto) 0.1 12/05/20 06:35: Sodium 136, Potassium 4.4 D, Chloride 100, Carbon Dioxide 29, BUN 14 D, Creatinine 0.40 L D, Estimated Creat Clear 269, Estimated GFR 167, Est GFR ( Amer) 202 D, Glucose 266 H, Calcium 8.7 I & O for Last 24 hours: Intake & Output 12/02/20 12/03/20 12/04/20 12/05/20 11:59 11:59 11:59 11:59 Intake Total 840 / 840 480 / 480 900 / 900 Balance 840 / 840 480 / 480 900 / 900 Weight 231 lb 1.6 oz 231 lb 1 oz 231 lb Microbiology Reports for the Last 24 Hours: Microbiology 12/02/20 18:35 Blood Blood Culture - Preliminary NO GROWTH AFTER 48 HOURS 12/02/20 18:35 Blood Blood Culture - Preliminary NO GROWTH AFTER 48 HOURS Narrative: Patient is sitting up in bed and is mildly anxious. Lungs have diffuse rhonchi and wheezes. Heart has a regular rate and rhythm. Assessment and Plan (1) PNA (pneumonia) Status: Acute Qualifiers: Pneumonia type: due to unspecified organism Laterality: bilateral Lung location: unspecified part of lung Qualified Code(s): J18.9 - Pneumonia, unspecified organism Category: Medical Code(s): J18.9 - Pneumonia, unspecified organism (2) Type 2 diabetes mellitus with hyperglycemia Status: Acute Category: Medical Code(s): E11.65 - Type 2 diabetes mellitus with hyperglycemia (3) RSV bronchiolitis Status: Acute Category: Medical Code(s): J21.0 - Acute bronchiolitis due to respiratory syncytial virus (4) Coronary artery disease Status: Acute Category: Medical Code(s): I25.10 - Atherosclerotic heart disease of [place] coronary artery without angina pectoris - Assessment and plan all Dx Assessment and Plan for all problems:: 1. Continue IV steroids and breathing treatments
[2020-12-05 16:25] LABS: POC Glucose,Bedside 299 (70-110)
--- NOTE | 2020-12-05 18:24 | PC.NURSE ---
pt has slept majority of this shift. FSBS have been elevated this shift, sliding scale insulin administered per APR. Pt has remained on 2L NC. Productive cough noted this shift, sputum sent to lab per RT. No other acute changes or complaints, will continue to monitor.
[2020-12-05 22:05] LABS: POC Glucose,Bedside 266 (70-110)
[2020-12-05 22:05] LABS: POC Glucose,Bedside 289 (70-110)
[2020-12-06] VITALS: BP 178/97; PULSE 73; RESP 24; TEMP 36.7; O2SAT 94
[2020-12-06 04:00] VITALS: BP 131/88; PULSE 76; RESP 18; TEMP 36.9; O2SAT 95
[2020-12-06 05:17] VITALS: BMI 37.3
[2020-12-06 06:19] LABS: POC Glucose,Bedside 147 (70-110)
[2020-12-06 06:40] VITALS: PULSE 82; PULSE 91; O2SAT 87
--- NOTE | 2020-12-06 07:02 | P.PN_ITS ---
Internal Medicine - PN: Subj *Date: 12/06/20 *Time: 07:02 Interval history: Patient reports feeling better. She is still requiring low-flow supplemental oxygen to maintain sats in the low 90s. Resting room air sat was 87% early this morning. Exam Vital signs and Labs for Last 24 Hours: Temp Pulse Resp BP Pulse Ox 98.4 F 91 H 18 131/88 87 L 12/06/20 04:00 12/06/20 06:40 12/06/20 04:00 12/06/20 04:00 12/06/20 06:40 Laboratory Results - last 24 hr 12/05/20 06:35: Sodium 136, Potassium 4.4 D, Chloride 100, Carbon Dioxide 29, Anion Gap 7.0, BUN 14 D, Creatinine 0.40 L D, Estimated Creat Clear 269, Estimated GFR 167, Est GFR ( Amer) 202 D, Glucose 266 H, Calcium 8.7 12/05/20 12:53: POC Glucose 299 H 12/05/20 17:13: POC Glucose 289 H 12/05/20 21:33: POC Glucose 266 H 12/06/20 06:02: POC Glucose 147 H I & O for Last 24 hours: Intake & Output 12/03/20 12/04/20 12/05/20 12/06/20 11:59 11:59 11:59 11:59 Intake Total 840 / 840 480 / 480 1020 / 1020 360 / 360 Output Total 950 / 950 Balance 840 / 840 480 / 480 1020 / 1020 -590 / -590 Weight 231 lb 1.6 oz 231 lb 1 oz 231 lb 232 lb 2.348 oz Microbiology Reports for the Last 24 Hours: Microbiology 12/04/20 14:20 Sputum - Expectorated Sputum Gram Stain - Final Narrative: Patient appears less anxious this morning. Lungs have improvement and rhonchi although wheezing persists. Heart has a regular rate and rhythm. Abdomen is soft. Lower extremities have no edema Assessment and Plan (1) PNA (pneumonia) Status: Acute Qualifiers: Pneumonia type: due to unspecified organism Laterality: bilateral Lung location: unspecified part of lung Qualified Code(s): J18.9 - Pneumonia, unspecified organism Category: Medical Code(s): J18.9 - Pneumonia, unspecified organism (2) Type 2 diabetes mellitus with hyperglycemia Status: Acute Category: Medical Code(s): E11.65 - Type 2 diabetes mellitus with hyperglycemia (3) RSV bronchiolitis Status: Acute Category: Medical Code(s): J21.0 - Acute bronchiolitis due to respiratory syncytial virus (4) Coronary artery disease Status: Acute Category: Medical Code(s): I25.10 - Atherosclerotic heart disease of [place] coronary artery without angina pectoris - Assessment and plan all Dx Assessment and Plan for all problems:: 1. Continue oral Levaquin for community-acquired pneumonia 2. Continue steroids and aerosols for patient's RSV bronchiolitis. Continue supplemental oxygen. Continued use of oxygen is the obstacle to discharge
--- NOTE | 2020-12-06 07:55 | HMH.ACPN ---
Internal Medicine - PN: Subj *Date: 12/06/20 *Time: 07:55 Exam Vital signs and Labs for Last 24 Hours: Temp Pulse Resp BP Pulse Ox 98.4 F 91 H 18 131/88 87 L 12/06/20 04:00 12/06/20 06:40 12/06/20 04:00 12/06/20 04:00 12/06/20 06:40 Laboratory Results - last 24 hr 12/05/20 06:35: Anion Gap 7.0 12/05/20 12:53: POC Glucose 299 H 12/05/20 17:13: POC Glucose 289 H 12/05/20 21:33: POC Glucose 266 H 12/06/20 06:02: POC Glucose 147 H I & O for Last 24 hours: Intake & Output 12/03/20 12/04/20 12/05/20 12/06/20 23:59 23:59 23:59 23:59 Intake Total 1320 / 1320 420 / 900 960 / 960 Output Total 350 / 950 600 / 600 Balance 1320 / 1320 420 / 900 610 / 10 -600 / -600 Weight 104.825 kg 105 kg 104.78 kg 105.3 kg Microbiology Reports for the Last 24 Hours: Microbiology 12/04/20 14:20 Sputum - Expectorated Sputum Gram Stain - Final Assessment and Plan (1) PNA (pneumonia) Status: Acute Qualifiers: Pneumonia type: due to unspecified organism Laterality: bilateral Lung location: unspecified part of lung Qualified Code(s): J18.9 - Pneumonia, unspecified organism Category: Medical Code(s): J18.9 - Pneumonia, unspecified organism (2) Type 2 diabetes mellitus with hyperglycemia Status: Acute Category: Medical Code(s): E11.65 - Type 2 diabetes mellitus with hyperglycemia (3) RSV bronchiolitis Status: Acute Category: Medical Code(s): J21.0 - Acute bronchiolitis due to respiratory syncytial virus (4) Coronary artery disease Status: Acute Category: Medical Code(s): I25.10 - Atherosclerotic heart disease of [place] coronary artery without angina pectoris The patient's infection will respond to the chosen ABx?: Yes Is the patient receiving the right drug, dose, and route?: Yes Could a more targeted ABx be ordered?: No (VANC STOPPED. ON LEVAQUIN ONLY)
[2020-12-06 08:00] VITALS: BP 179/91; PULSE 91; RESP 19; RESP 20; TEMP 37; O2SAT 92; O2SAT 93
[2020-12-06 08:11] LABS: Basophils # 0.1 K/mm3 (0-0.2); Basophils % 0.7 % (0.1-2.0); Eosinophils % 0.2 % (0.1-12.0); Hematocrit 44.7 % (37.0-47.0); Hemoglobin 14.7 g/dL (12.2-16.2); Lymphocytes # 3.5 K/mm3 (0.7-4.5); Lymphocytes % 23.5 % (10-50); Mean Corpuscular HGB Conc 32.8 g/dL (31.8-35.4); Mean Corpuscular Hemoglobin 29.7 pg (27.0-31.2); Mean Corpuscular Volume 90.7 fl (81-99); Mean Platelet Volume 8.9 fl (7.4-10.4); Monocytes # 0.7 K/mm3 (0.1-1.0); Monocytes % 4.6 % (1.7-9.3); Neutrophils # 10.6 K/mm3 (1.8-7.8); Neutrophils % 70.9 % (37.0-80.0); Platelet Count 407 K/mm3 (142-424); Red Blood Count 4.93 M/mm3 (4.20-5.40); Red Cell Distribution Width 14.5 % (11.5-17.5); White Blood Count 14.9 K/mm3 (4.8-10.8)
[2020-12-06 09:55] VITALS: PULSE 88; PULSE 93; O2SAT 92
--- NOTE | 2020-12-06 10:58 | SW/DCPLANNER ---
Addendum entered by Cara Smith 12/06/20 11:14: Portable O2 has been delivered. Patients address is [address] in [facility]. Original Note: Patient information/order has been faxed to [facility] for patient to discharge home w/ home O2/portable tank. I spoke with Lakesha at [facility] regarding patient not having health insurance. Lakesha has since stated that she spoke with patient and they have decided on a perea pay cost that patient is comfortable with at this time. I will follow up with Andrés once patient information/order is reviewed. I have also updated Dr Mijares regarding discharge plan.
[2020-12-06 12:00] VITALS: BP 186/90; PULSE 81; RESP 18; TEMP 36.4; O2SAT 93
--- NOTE | 2020-12-09 17:05 | HMH.DCSUM ---
General - General Admission date:: 12/02/20 Discharge date: 12/06/20 HPI HPI: 55-year-old female presented to the emergency department for the second time in a 24-hour. With 2 days of chills without fevers and unrelenting cough. Patient had been seen in the emergency department the evening prior and diagnosed with pneumonia. She had refused admission at that time due to caring for her significant other at home. Her significant other has ended up hospitalized within the last 24 hours and patient return to the emergency department as well. Patient was found to have elevated white blood cell count along with findings of bilateral pneumonia. She was not requiring any supplemental oxygen. Patient has been admitted for observation, IV antibiotics. Patient has a past medical history of CA in August of this year. Her last A1c was 8.7. Despite a long history of smoking anywhere from 1/2 pack to 3 packs/day since the age of 9 patient claims she recently had a pulmonary evaluation and was told she did not have COPD. Patient's primary residence is [facility]. Hospital Course Hospital Course: Patient was admitted for suspected community-acquired pneumonia and COPD exacerbation. The following day the patient confirms she is had pulmonary function testing and has been told specifically she does not have COPD. However patient were made with significantly abnormal lung exam with wheezing, rhonchi and rales. White blood cell count was elevated on admission. Patient was started on IV Levaquin and had improvement in white blood cell count during hospitalization. Initially patient had no oxygen requirement but the second day of admission developed mild hypoxia that was corrected with low flow nasal cannula at 2 L/min. Patient's lung exam however did not respond to aerosols and steroids. Full respiratory panel was performed confirming the presence of RSV. Patient's pneumonia and resulting bronchiolitis were responsible for her respiratory failure. On the morning of December 06 the patient had significant improvement in lung exam with only intermittent episodes of hypoxia. Oxygen was arranged for the patient at home and she was discharged home. She will continue a course of antibiotics as well as steroids. Objective Vital signs: Temp Pulse Resp BP Pulse Ox 97.6 F 81 18 186/90 H 93 L 12/06/20 12:00 12/06/20 12:00 12/06/20 12:00 12/06/20 12:00 12/06/20 12:00 DS: Diagnosis - Discharge Diagnosis (1) PNA (pneumonia) Status: Acute (2) Type 2 diabetes mellitus with hyperglycemia Status: Acute (3) RSV bronchiolitis Status: Acute (4) Coronary artery disease Status: Acute Discharge Plan - Patient Discharge Instructions ACTIVITY: Continue current activity DIET: continue same diet Patient Instructions: Pneumonia-Adult, Sepsis, DI for Pneumonia -- Adult, DI for Hyperglycemia -- Adult, DI for Sepsis -- Adult - Follow up Plan Disposition: Home, Self-Care Condition at discharge:: Improved Home Medications: Home Medications Medication Instructions Recorded Confirmed Type Insulin Glargine,Hum.rec.anlog 70 unit SQ DIRECTED 12/01/20 12/03/20 History [Lantus] levoFLOXacin [Levaquin 500mg 500 mg PO DAILY #7 tab 12/01/20 12/03/20 Rx tab] predniSONE [Prednisone 20mg 20 mg PO BID #10 tab 12/01/20 12/03/20 Rx Tab] Amlodipine Besylate 10 mg PO DAILY 12/03/20 12/03/20 History Atorvastatin Calcium [Lipitor 40mg 40 mg PO HS 12/03/20 12/03/20 History Tab] Cetirizine HCl 10 mg PO DAILY 12/03/20 12/03/20 History Clopidogrel Bisulfate [Clopidogrel 75 mg PO DAILY 12/03/20 12/03/20 History 75mg Tab] Metoprolol Tartrate [Lopressor 100 100 mg PO BID 12/03/20 12/03/20 History mg Tablets] Nitroglycerin 0.4 mg SL NEEDED PRN 12/03/20 12/03/20 History Pregabalin [Lyrica 300mg Cap] 300 mg PO BID 12/03/20 12/03/20 History hydrOXYzine pamoate [Vistaril] 25 mg PO DAILY 10
== END 2020-12-06 12:41 | disposition home or self-care (01) | DRG 193 ==
LOC: ER 20:07 → 2ND 12-03 07:56
PROVIDERS: Admitting Provider Family Medicine; Emergency Provider Family Medicine; Visit Provider Family Medicine
DX: J18.9 Pneumonia, unspecified organism (principal); J96.90 Respiratory failure, unspecified, unspecified whether with hypoxia or hypercapnia; J21.0 Acute bronchiolitis due to respiratory syncytial virus; E11.65 Type 2 diabetes mellitus with hyperglycemia; Z79.4 Long term (current) use of insulin; Z79.899 Other long term (current) drug therapy; Z88.8 Allergy status to other drugs, medicaments and biological substances; Z20.822 Contact with and (suspected) exposure to COVID-19; F17.210 Nicotine dependence, cigarettes, uncomplicated; I25.10 Atherosclerotic heart disease of native coronary artery without angina pectoris; I10 Essential (primary) hypertension
CPT/HCPCS: 36415; 71046; 80048; 80053; 80202; 82962; 83605; 85007; 85025; 87040; 87070; 87205; 87581; 87632; 87798; 94640; 94761; 99284; C9803; J1956; J2405; J3370; U0003; U0005

== ENCOUNTER → 2020-12-31 08:42 | Outpatient (POV) | payer OTHER, SELFPAY ==
[2020-12-31 09:00] VITALS: BP 150/95; PULSE 82; RESP 18; O2SAT 96; BMI 42.0
--- NOTE | 2020-12-31 09:14 | HMH.PMCON ---
Assessment and Plan (1) Abdominal pain Status: Chronic Category: Medical Code(s): R10.9 - Unspecified abdominal pain (2) Chronic pancreatitis Status: Chronic Category: Medical Code(s): K86.1 - Other chronic pancreatitis - Assessment and plan all Dx Assessment and Plan for all problems:: We will schedule the patient for a celiac block with Dr. Marsh. The patient's last injection was in May or June 2020. She got significant relief until recently. The patient is currently on Plavix therapy for cardiac stent that was placed on September 01 after a CA. The patient says that her medication is managed by Dr. Mijares. We will seek approval to hold her Plavix for the injection. We will follow-up with the patient after the injection for reevaluation of symptoms. Patient is also diabetic. Risks and benefits of the procedure have been explained to the patient. Patient would like to proceed with the procedure. Possible side effects of corticosteroids have been discussed with the patient. Risks and benefits of the procedure have been explained to the patient. Patient would like to proceed with the procedure. Patient has been instructed to contact the clinic with any concerns before the next appointment. Dr. Le has reviewed this note and agrees with this plan of care. This note was dictated using voice recognition software and make contain errors or omissions. HPI - Data of Consult Patient: new to practice Consult date: 12/31/20 Requesting Physician: Madie Hardwikc APRN - Consult Narrative Reason for consult: Left flank pain History of present illness: Ms. Nunes is a 55 year old female Who presents today for consultation for chronic pancreatitis. She has got left flank pain radiating into her left upper and lower quadrant. Patient reports that she had a celiac block in May 2020. She has been getting celiac blocks for the last 5 years. She had these performed in [place] at [facility] she reports that she got significant relief with the injections. Her initial injection did not give much relief, however, following the first injection she reports she gets 3 to 5 months of relief. Patient has been on oral Dilaudid which gave her minimal relief. She does report that she was a heavy drinker in the past but no longer consumes alcohol. She does endorse marijuana use for anxiety and neuropathy. She also takes gabapentin for neuropathy. She does report that and August 2020 she did have an CA requiring a cardiac stent. The patient is on Plavix. She rates her pain a 5 or 6 out of 10 today. The pain is starting to return. She was sedated in the past with twilight sedation for the celiac block. Patient has been informed that we do not provide sedation during blocks. She would like to proceed with undergoing the block. She feels this gives her much more relief than oral medication management. She does have intermittent nausea and vomiting, but says over the years she has learned if she stops eating during a flareup she will find some improvement with her symptoms. CC: Madie Hardwick APRN [facility] History I have reviewed the patient's past medical history: Yes Medical History: Reports:: Chronic Obstructive Pulmonary Disease (COPD), Diabetes Mellitus Type 1, Diabetes Mellitus Type 2, Hyperlipidemia, Hypertension Denies:: Cancer, MRSA *Have you ever received a pneumonia vaccine?: No *Have you received a flu vaccine this season?: No Other Medical History: Reports: Arthritis Other Surgeries: Yes: Appendectomy, Cardiac Catheterization, Cholecystectomy, Colonoscopy, EGD, Hysterectomy-Partial, Tubal Ligation Amputation: No Fractures: No - *Social History Smoking Status: Former smoker Tobacco Type: cigarettes # Packs/Day (cigarettes): 1 Alcohol Intake: former Substance Use Type: marijuana *Occupational Status:: unemployed Housing: house Household Members: significant other *Travel in the last 8 weeks: None Family Hx::
== END ==
PROVIDERS: Visit Provider Clinical Nurse Specialist Family Health
DX: K86.1 Other chronic pancreatitis (principal)
CPT/HCPCS: 99202; G0463

== ENCOUNTER → 2021-01-27 05:58 | Outpatient (CLI) | payer OTHER, SELFPAY ==
--- NOTE | 2021-01-27 05:59 | NM_ITS ---
APPROVED REPORT Exam: Nuclear Stress Test Indication: Chest pain, CAD, Hx of [place], HTN, DM, High cholesterol, Tobacco use, Family history Patient Location: Outpatient Stress Tech: Stella Campa NM Tech:Nguyen Weir, ARRT, RT (R)(N) Ht: 5 ft 2 in Wt: 230 lbs Bra Size: C HR: 62 bpm BP: 167/92 mmHg BSA: 2.03 m2 BMI: 42.0 History: Chest pain, CAD, Hx of [place], HTN, DM, High cholesterol, Tobacco use, Family history Procedure: Patient received a 0.4 mg of intravenous Lexiscan, resting heart rate 62 bpm, resting blood pressure 167/92 mmHg, with Lexiscan maximum heart rate achived was 68 bpm which is Less than 85 % of the maximum predicted heart rate and blood pressure was 153/83 mmHg. With Lexiscan, patient denied any complaint of chest pain. Electrocardiogram Resting electrocardiogram shows sinus rhythm, with Lexiscan there is less than 1.[address] segment depression noted from the baseline EKG. The EKG portion of the Lexiscan is nondiagnostic. Cardiac Stress and Resting SPECT Images: Cardiac Stress and Resting SPECT images were obtained using technetium 99m Myoview 31.5 mCi stress and 10.71 mCi at rest. Gated SPECT for analysis of segmental wall motion and calculation of the ejection fraction also done. Prone images were also obtained. Cardiac stress and resting SPECT images show reversible ischemia involving the inferior apical wall compared right ejection fraction 54% with no regional wall motion abnormality, right ventricle is normal size and contractility. Conclusion: 1. The EKG portion of the Lexiscan is nondiagnostic. 2. Scintigraphic evidence of reversible ischemia involving the inferior apical wall, computer derived ejection fraction is 54% with no regional wall motion abnormality, right ventricle is normal size and contractility. 3. Abnormal Lexiscan Myoview study. Electronically signed by : Feliz Sands MD 01/27/2021 19:02:44
--- NOTE | 2021-01-27 05:59 | CA_ITS ---
APPROVED REPORT Exam: Pharmacologic Technologist: Stella Campa, Ht: 5 ft 2 in Wt: 233 lbs BSA: 2.04 m2 HR: 62 bpm BP: 167/62 mmHg Rhythm: Sinus vasiliy, SR Medical History Medical History: HTN, Hyperlipidemia, Diabetic ??? Insulin Medications: Amlodipine,,,,, Lisinopril,,,,, Metoprolol,,,,, Gabapentin,,,,, INSULIN,,,,, Lipitor,,,,, Albuterol,,,,, CloPIdogrel,,,,, Hydroxyzine,,,,, Nitro,,,,, CetIRIZINE,,,,, Cardiac Risk Factors: HTN, Hyperlipidemia, Diabetes (insulin) Stress Test Details Test: LEXISCAN HR Resting HR: 59 bpm Max Heart Rate (APMHR): 167.127136 bpm Max HR Achieved: 78 bpm Target HR (85% APMHR): 141.864715 bpm % of APMHR: 46.71 Recovery HR: 67 bpm BP Resting BP: 167/92 mmHg Max BP: 167/92 mmHg Recovery BP: 140.0/85.0 mmHg ECG Resting ECG: Sinus vasiliy, SR Clinical Exercise duration: 04:00 min Highest Stage Achieved: Exercise capacity: 1.0 METs Stress ECG Conclusion During lexiscan pt experinced no CP, SOB during peak infusion, resolved in recovery. No arrthymias noted. Less than 1.5mm ST depression. Images to follow. Test Summary REST . . . . . . . Sitting REST 02:16 . . 59 . 167/ 92 . . Stage 1 . . . . . . . Myoview Injected Stage 1 01:00 . . 72 . . . . Stage 2 01:00 . . 75 . . . . Stage 3 01:00 . . 69 . 142/ 78 . . Stage 4 01:00 . . 71 . 153/ 83 . Stop exercise at 04:00 RECOVERY 01:00 . . 65 . 140/ 85 . . RECOVERY 02:00 . . 67 . 150/ 92 . . RECOVERY 03:00 . . 62 . 135/ 84 . . RECOVERY 04:00 . . 63 . 145/ 91 . . RECOVERY 04:07 . . 64 . 145/ 91 . . Electronically signed by : Feliz Sands MD 01/27/2021 18:13:38
--- NOTE | 2021-01-27 05:59 | CA_ITS ---
APPROVED REPORT EXAM: Comprehensive 2D, Doppler, and color-flow Echocardiogram Produce Associate: Samantha Washburn RT(R) Ht: 5 ft 2 in Wt: 230lbs BSA: 2.03 BP: 133/79 mmHg Indications: CP, COPD, ex smoker, HTN, DM, SOB, hyperlipidemia, CAD, ABN EKG, hx NE 2D Dimensions LVOT 2.03 cm (M/F) 1.5-2.5 LVEF (Mai's) 55.90 % F: 54 - 74 LV Volume 90.70 mL F: 46 - 106 LV Volume Index 44.67 mL/m2 F: 29 - 61 LA Volume 33.80 mL LA Volume Index 16.65 mL/m2 (M/F) 16-34 M-Mode Dimensions RVDd 2.25 cm (0.9-2.6) LA Diam 3.75 cm (1.9-4.0) LVDd 5.74 cm (3.5-5.7) Ao Diam 2.14 cm (2.0-3.7) LVDs 4.90 cm (3.5-5.7) IVSd 0.84 cm (0.6-1.1) PWd 0.92 cm (0.6-1.1) EF (Teich) 30.60% FS 14.60% EDV (Teich) 162.60 mL ESV (Teich) 112.80 mL LV Diastology E Decel Time 213.00 (160-240 msec) E/A Ratio 0.77 MED E' 4.70 (< 7 cm/sec) E'/MED E' Ratio 16.06 (>14) LAT E' 6.40 (<10 cm/sec) E/LAT E' Ratio 11.80 (>14) Mitral Valve MV A Velocity 98.00 (40-130 cm/s) E/A Ratio 0.77 MV Decel. Time 213.00 (160-240 ms) Left Ventricle Left atrium is mildly enlarged, left ventricle is normal size, mild concentric left ventricular hypertrophy, visually estimated ejection fraction 55% with no regional wall motion abnormality, grade 1 diastolic dysfunction seen without tissue Doppler evidence of raise left atrial pressure. Right Ventricle Right atrium and right ventricle are normal size and contractility. Aortic Valve Aortic valve is minimally thickened and fibrosed, there is no aortic stenosis, there is mild aortic insufficiency. Mitral Valve Mitral valve grossly normal, there is trace mitral regurgitation. Tricuspid Valve Tricuspid grossly normal, there is trace tricuspid regurgitation, tricuspid regurgitation jet velocity is inadequate for calculation of the right ventricular systolic pressure. Pulmonic Valve Pulmonic valve is poorly visualized. Great Vessels Aortic root is normal size. Inferior vena cava normal size with normal inspiratory collapse. Pericardium No significant pericardial effusion noted. Conclusion 1. Mildly enlarged left atrium, normal left ventricular size, mild concentric left ventricular hypertrophy, visually estimated ejection fraction 55% with no regional wall motion abnormality, grade 1 diastolic dysfunction seen without tissue Doppler evidence of raise left atrial pressure. 2. Thickened and calcified aortic valve without aortic stenosis, there is trace aortic insufficiency. 3. Trace mitral and tricuspid regurgitation. 4. No significant pericardial effusion noted. 5. Inferior vena cava is normal size with normal inspiratory collapse. Electronically signed by : Feliz Sands MD 01/27/2021 20:25:37
--- NOTE | 2021-01-27 08:40 | HMH.ITSHM ---
Current Home Medications as stated by this patient Madie Nunes or promotions representative. []LISINOPRIL HYDROXYZINE GABAPENTIN NITRO METORPROLOL ALBUTEROL INSULIN CLOPIDOGREL CETIRIZINE ATORVASTATIN AMLODIPINE
== END ==
PROVIDERS: PCP Family Medicine; Visit Provider Nurse Practitioner Family
DX: I25.118 Atherosclerotic heart disease of native coronary artery with other forms of angina pectoris (principal); R07.89 Other chest pain; E11.65 Type 2 diabetes mellitus with hyperglycemia; R68.84 Jaw pain; Z95.5 Presence of coronary angioplasty implant and graft; Z79.4 Long term (current) use of insulin
CPT/HCPCS: 78452; 93017; 93306; A9502; J2785

== ENCOUNTER → 2021-02-20 09:17 | Outpatient (POV) | payer OTHER, SELFPAY ==
[2021-02-20 09:26] VITALS: BP 144/80; PULSE 75; RESP 18; O2SAT 96; BMI 34.3
--- NOTE | 2021-02-20 10:55 | P.CONS_ITS ---
[facility] Pain Management SOAP Note Subjective:: Patient is a 55-year-old white female who presents today for follow-up. She is being seen in the clinic for chronic abdominal pain and chronic pancreatitis. We did schedule the patient for celiac block with Dr. Marsh. Patient has had celiac blocks [place] She got significant relief. Unfortunately, the patient has had to cancel those appointments. She says that she has had a bad feeling about proceeding with the blocks . She says that she does not feel comfortable proceeding with the celiac blocks with Dr. Marsh. She says that she understands they are very high risk and she is on Plavix therapy. She says that due to feeling uncomfortable she does not wish to pr oceed with injective therapy. She has taken Vicodin, Percocet and Dilaudid in the past orally for pain management. She says that she is not seeking oral medications but is taking help for pain relief. She is interested in implanted devices. Today, she rates her pain a 6 out of 10. Review of Systems General: No recent weight changes, no fever, no sleep disturbances Respiratory: No cough, no shortness of air, no recurring pulmonary infections Cardiovascular/peripheral vascular: No chest pain, no palpitations, no edema, no shortness of breath Gastrointestinal: No new onset incontinence, diarrhea, nausea vomiting, abdominal pain frequent Genitourinary: No new onset incontinence Musculoskeletal: Psychiatric: [Normal mood/affect] Neurological: [Denies weakness in extremities], [denies balance issues] Objective:: Physical exam General: Alert and oriented x3, no acute distress, pleasant and cooperative Lungs: Respirations even and unlabored, symmetrical chest expansion Eyes: PERRL Abdomen: Soft nondistended positive bowel sounds Musculoskeletal: Flexion and extension of [] [spine] nonguarded Neurological: Speech clear, no gross sensory deficit Assessment:: Abdominal pain, chronic pancreatitis Plan:: We will schedule patient for psychological evaluation. She may be an appropriate candidate for intrathecal therapy for chronic pancreatitis. She does admit to a history of marijuana use for pain control. She does understand she will need to have negative drug screens to have an intrathecal pump with opiates. She is also been advised bupivacaine may not provide sufficient relief if she is unable to take opiates for pain relief in the intrathecal pump. She would like to proceed with the psychological evaluation to see if she is an appropriate candidate. We will see her back in the clinic afterwards for further evaluation. [facility] History I have reviewed the patient's past medical history: Yes Medical History: Reports:: Chronic Obstructive Pulmonary Disease (COPD), Diabetes Mellitus Type 1, Diabetes Mellitus Type 2, Hyperlipidemia, Hypertension Denies:: Cancer, MRSA *Have you ever received a pneumonia vaccine?: No *Have you received a flu vaccine this season?: No Other Medical History: Reports: Arthritis Other Surgeries: Yes: Appendectomy, Cardiac Catheterization, Cholecystectomy, Colonoscopy, EGD, Hysterectomy-Partial, Tubal Ligation Amputation: No Fractures: No - *Social History Smoking Status: Former smoker Tobacco Type: cigarettes # Packs/Day (cigarettes): 1 Alcohol Intake: former Substance Use Type: marijuana *Occupational Status:: unemployed Housing: house Household Members: significant other *Travel in the last 8 weeks: None Family Hx:: No significant family history
== END ==
PROVIDERS: Visit Provider Clinical Nurse Specialist Family Health
DX: K86.1 Other chronic pancreatitis (principal)
CPT/HCPCS: 99212; G0463

== ENCOUNTER → 2021-03-24 09:19 | Outpatient (CLI) | payer OTHER, SELFPAY ==
[2021-03-24 09:41] LABS: Basophils # 0.1 K/mm3 (0-0.2); Basophils % 1.1 % (0.1-2.0); Eosinophils # 0.5 K/mm3 (0.0-0.4); Eosinophils % 4.1 % (0.1-12.0); Hematocrit 47.1 % (37.0-47.0); Hemoglobin 15.7 g/dL (12.2-16.2); Lymphocytes # 2.8 K/mm3 (0.7-4.5); Lymphocytes % 24.4 % (10-50); Mean Corpuscular HGB Conc 33.4 g/dL (31.8-35.4); Mean Corpuscular Hemoglobin 30.1 pg (27.0-31.2); Mean Corpuscular Volume 89.9 fl (81-99); Mean Platelet Volume 8.7 fl (7.4-10.4); Monocytes # 0.6 K/mm3 (0.1-1.0); Monocytes % 4.9 % (1.7-9.3); Neutrophils # 7.6 K/mm3 (1.8-7.8); Neutrophils % 65.6 % (37.0-80.0); Platelet Count 362 K/mm3 (142-424); Red Blood Count 5.24 M/mm3 (4.20-5.40); Red Cell Distribution Width 14.3 % (11.5-17.5); White Blood Count 11.6 K/mm3 (4.8-10.8)
[2021-03-24 11:06] LABS: Anion Gap 11.7 mEq/L (5-15); Blood Urea Nitrogen 17 mg/dl (7-17); Calcium 9.7 mg/dl (8.4-10.2); Carbon Dioxide 29 mmol/L (22.0-30.0); Chloride 98 mmol/L (98-107); Estimated Glomerular Filt Rate 75 ml/min (>60); GFR (African American) 91 ML/MIN (>60); Glucose 212 mg/dl (74-100); Potassium 3.7 mmoL/L (3.5-5.1); Sodium 135 mmol/L (136-145)
== END ==
PROVIDERS: PCP Family Medicine; Visit Provider Physician Assistant
DX: Z01.812 Encounter for preprocedural laboratory examination (principal); Z11.52 Encounter for screening for COVID-19; I25.118 Atherosclerotic heart disease of native coronary artery with other forms of angina pectoris; I10 Essential (primary) hypertension; E78.2 Mixed hyperlipidemia; R94.30 Abnormal result of cardiovascular function study, unspecified; Z95.5 Presence of coronary angioplasty implant and graft
CPT/HCPCS: 36415; 80048; 85025; C9803; U0003; U0005

== ENCOUNTER 2021-03-26 08:58 | Day surgery (SDC) | payer OTHER, SELFPAY ==
[2021-03-26] VITALS (13 sets, daily range): BP systolic 101–133; BP diastolic 53–89; PULSE 45–66; RESP 14–19; TEMP 36.9; O2SAT 93–100; BMI 39.1
--- NOTE | 2021-03-26 | IR_ITS ---
APPROVED REPORT Patient Location: Outpatient Abrasives Sales Representative: KOKO Moe RT (R) PROCEDURES Left heart catheterization Left ventriculogram Selective coronary angiogram Drug-eluting stent deployment to the proximal dominant right coronary artery INDICATION Coronary artery disease, Typical angina pectoris, Abnormal Myoview with inferior wall ischemia Informed consent was obtained prior to the procedure. COMPLICATIONS None Estimated Blood Loss: Less than 10 mls TECHNIQUE One percent lidocaine used to anesthetize the right anterior aspect of the wrist. The right radial artery was accessed via the Seldinger technique. A 6 Zimbabwean sheath was placed in the right radial artery. 2.5 mg of verapamil, 800 mcg of nitroglycerin, 1mg Lidocaine and 5000 U Heparin were given through the arterial sheath. The ViSpa catheter was also used to perform left heart catheterization, left ventriculogram and selective coronary angiogram. At the end of the diagnostic procedure therapeutic heparin was administered giving a therapeutic ACT and the guide catheter was placed in the right coronary artery followed by a Choice PT extra-support wire. A 3 mm x 15 mm resolute Maurice stent was deployed proximally at 16 anthony reducing the hemodynamically severe stenosis to 0%. JORGE-3 flow was present before and after the procedure. At the end of procedure the apparatus was removed the sheath was removed and hemostasis was achieved using TR banding patient was transferred to the postop already in stable condition ANGIOGRAPHIC RESULTS The left main artery Normal The left anterior descending artery Has an ostial smooth 10 to 20% stenosis with mild proximal 10% luminal irregularities followed by mid vessel smooth 10% stenoses. The first diagonal artery has an ostial 50% stenosis and is 2.25 mm in diameter The circumflex artery Is nondominant yet still large giving rise to 2 large obtuse marginal arteries. The first obtuse marginal artery has a mid vessel 40% stenosis while the second obtuse marginal artery has mid vessel 10 to 20% stenoses The right coronary artery Right coronary artery is a dominant vessel and has a proximal 60 to 70% stenosis The SCHWAB ventriculogram reveals Normal 65% The left ventricular end-diastolic pressure 15 mmHg IMPRESSION Hemodynamically severe disease in the proximal dominant right coronary as evidenced by the abnormal Myoview and the moderate to severe stenosis Successful stenting of the proximal dominant right coronary hemodynamically severe disease reduced to 0% with 1 drug-eluting stent Persistent mild to moderate coronary disease as described above Normal ejection fraction Borderline LVEDP PLAN 1. Dual antiplatelet therapy 2. Risk factor modification 3. LDL less than 55 4. Physical therapy with cardiac rehabilitation 5. Avoidance of all tobacco products Electronically signed by : Vj Lacy MD 03/26/2021 10:56:29
[2021-03-26 11:12] LABS: CATHL Activated Clotting Time > 400 SEC (74-125)
--- NOTE | 2021-03-26 14:32 | HMH.PHACLD ---
Madie Des has received discharge medication counseling on the following medications: PATIENT IS CURRENTLY TAKING PLAVIX 75 MG DAILY, LIPITOR 40 MG HS, LOPRESSOR 100 MG BID, AND LISINOPRIL 40 MG DAILY. PATIENT INDICATED SHE IS SUPPOSED TO BE TAKING ASPIRIN 81 MG DAILY BUT HAD RUN OUT RECENTLY. STRESSED THE IMPORTANCE OF TAKING THE ASPIRIN WITH PLAVIX AFTER STENTING.
== END 2021-03-26 14:58 | disposition home or self-care (01) ==
LOC: CATHLAB 09:01
PROVIDERS: PCP Family Medicine; Visit Provider Internal Medicine
DX: I25.118 Atherosclerotic heart disease of native coronary artery with other forms of angina pectoris (principal); E11.9 Type 2 diabetes mellitus without complications; Z79.4 Long term (current) use of insulin; I10 Essential (primary) hypertension; J44.9 Chronic obstructive pulmonary disease, unspecified; Z79.899 Other long term (current) drug therapy
CPT/HCPCS: 85347; 92928; 93458; 99152; C1725; C1769; C1876; C9600; J1644; Q9967

== ENCOUNTER → 2021-04-15 09:25 | Outpatient (CLI) | payer OTHER, SELFPAY ==
--- NOTE | 2021-04-15 09:27 | CA_ITS ---
FINAL REPORT TECHNIQUE: Limited sonographic images including color Doppler of the right wrist were obtained. CLINICAL HISTORY: PT HAD HEART CATH WITH RT RADIAL ACCESS ON 03/26/21, C/O PAIN AT SITE FINDINGS: DUPLEX SCAN RIGHT UPPER UPPER EXT ARTERIES The radial artery is patent with no evidence of pseudoaneurysm or AV fistula. IMPRESSION: Radial artery patent with no evidence of pseudoaneurysm. Reviewed, Interpreted and Dictated by Haider French III, MD Transcribed by Katie Alfaro Authenticated by Haider French III, MD on 04/15/2021 11:45:37 AM [facility]
== END ==
PROVIDERS: PCP Family Medicine; Visit Provider Nurse Practitioner Family
DX: G89.18 Other acute postprocedural pain (principal)
CPT/HCPCS: 93931

== ENCOUNTER 2021-04-21 15:26 | Emergency (ER) | payer OTHER, SELFPAY ==
--- NOTE | 2021-04-21 15:21 | ECG_ITS ---
APPROVED REPORT Exam: Resting ECG HR:56 bpm ECG Measurements Heart Rate 56 AXES MS 200 P 59 QRSd 91 QRS 16 QT 423 T 123 QTc 415 Conclusion SINUS BRADYCARDIA POSSIBLE LEFT ATRIAL ENLARGEMENT [-0.1mV P-WAVE IN V1/V2] ST DEVIATION AND MODERATE T-WAVE ABNORMALITY, CONSIDER LATERAL ISCHEMIA [-0.1+ mV T-WAVE IN I/aVL/V5/V6] ABNORMAL ECG UNCONFIRMED REPORT Electronically signed by : Carlos Eduardo Stewart MD 04/22/2021 13:50:24
[2021-04-21 15:27] VITALS: BP 161/92; PULSE 60; RESP 20; TEMP 37; O2SAT 95; BMI 40.9
[2021-04-21 15:28] VITALS: BMI 40.9
--- NOTE | 2021-04-21 15:29 | XR_ITS ---
FINAL REPORT TECHNIQUE: Chest PA & Lateral CLINICAL HISTORY: chest pain COMPARISON: December 02, 2020 FINDINGS: 2 views of the chest were performed. The heart size is normal. The mediastinum is within normal limits. There has been near resolution of the previously seen right middle lobe opacity. There is mild residual opacity. There are no pleural effusions. There is no pneumothorax. The bony thorax appears intact. IMPRESSION: Resolving right middle lobe opacity. Reviewed, Interpreted and Dictated by Sky Pimentel MD Transcribed by Thor Mckeon Authenticated by Sky Pimentel MD on 04/21/2021 04:58:[address] [facility]
[2021-04-21 15:45] VITALS: BP 150/80; RESP 18
[2021-04-21 15:48] LABS: Chloride 103 mmol/L (98-107); Sodium 134 mmol/L (136-145)
[2021-04-21 15:49] LABS: Potassium 3.9 mmoL/L (3.5-5.1)
[2021-04-21 15:51] LABS: Blood Urea Nitrogen 14 mg/dl (7-17); Creatinine Clearance Estimated 116 mL/min (50-200); Estimated Glomerular Filt Rate 65 ml/min (>60); GFR (African American) 79 ML/MIN (>60)
[2021-04-21 15:52] LABS: Anion Gap 8.9 mEq/L (5-15); Calcium 8.1 mg/dl (8.4-10.2); Carbon Dioxide 26 mmol/L (22.0-30.0); Glucose 194 mg/dl (74-100)
[2021-04-21 16:12] LABS: Troponin I < 0.01 ng/ml (0.00-0.034)
--- NOTE | 2021-04-21 16:38 | HMH.EDCP ---
ED Disposition Clinical Impression: Atypical chest pain Disposition: Home, Self-Care Condition on Discharge: Good Instructions: DI for Atypical Chest Pain Referrals: Carlos Eduardo Mijares MD [Primary Care Provider] - Vj Lacy MD [Staff Physician] - - Critical Care Critical Care Time: No Attestation: On 04/21/21, the high probability of a clinically significant, sudden or life threatening deterioration of the following system(s) required my full and direct attention, intervention and personal management. The time I documented below is in addition to time spent performing reported procedures but includes the following listed in this critical care notation. Medical Decision Making - Medical Records Medical records reviewed: Yes: I reviewed the patient's medical records. - Ray Inquiry Pt receiving controlled substance: No Vital Signs: 04/21/21 15:27 Temperature 98.6 F Temperature Source Oral Pulse Rate [Left Radial] 60 Respiratory Rate 20 Blood Pressure [Right Arm] 161/92 H Blood Pressure Mean [Right Arm] 115 Blood Pressure Source [Right Arm] Automatic Cuff Blood Pressure Position [Right Arm] Sitting 02 Sat by Pulse Oximetry 95 Oxygen Delivery Method Room Air - Lab Data Lab Results 04/21/21 15:30: Sodium 134 L, Potassium 3.9, Chloride 103, Carbon Dioxide 26, Anion Gap 8.9, BUN 14, Creatinine 0.90, Estimated Creat Clear 116, Estimated GFR 65, Est GFR ( Amer) 79, Glucose 194 H, Calcium 8.1 L, Troponin I < 0.01 Result diagrams: 04/21/21 15:30 Orders (Tests/Meds): ED MEDICATIONS Generic Name Dose Route Start Last Admin Trade Name Freq PRN Reason Stop Dose Admin Sodium Chloride 10 ml 04/21/21 15:29 Sodium Chloride 0.9% 10ml Flush Syringe IV 05/21/21 15:28 NEEDED PRN Maintain IV Site Discontinued Medications Generic Name Dose Route Start Last Admin Trade Name Freq PRN Reason Stop Dose Admin Morphine Sulfate 4 mg 04/21/21 15:37 04/21/21 16:21 Morphine 4mg/Ml Syringe IV 04/21/21 15:38 4 mg ONCE ONE Administration Ondansetron HCl 4 mg 04/21/21 15:37 04/21/21 16:22 Ondansetron 4mg/2ml Vial IV 04/21/21 15:38 4 mg ONCE ONE Administration ORDERS Category Date Time Status XR chest 2V Stat Exams 04/21/21 15:29 Taken Complete Blood Count Auto Diff Stat Lab 04/21/21 15:30 Received Troponin I Q3H Lab 04/21/21 18:30 Ordered Troponin I Q3H Lab 04/21/21 21:30 Ordered - Radiology Data #1 Image(s): Chest Image Reviewed: Yes I reviewed the patient's radiology results, Yes I reviewed the patient's radiology image, Yes I have reviewed radiologist's interpretation Preliminary Findings: Normal/NAD - ECG Data Tracing #1 I reviewed this ECG and interpreted as documented below: Bradycardic rate of 56 bpm, IL interval of 200 ms, normal QTC. Nonspecific changes, unchanged from previous. ECG initial impression date: 04/21/21 ECG initial impression time: 15:21 - Reevaluation(s) Time: 16:44 Reevaluation #1: On reevaluation, patient is feeling better. I did instruct her to use her nitroglycerin when she feels any sort of chest discomfort. Pain is resolved at this time. I did speak with cardiology who would like to see her again this week in clinic. Patient was instructed of this. She was given strict return precautions. Verbalized understanding. Medical Decision Narrative: 55-year-old female presented to the emergency department with some chest discomfort. Patient had a recent cardiac catheterization with stent placement. Appears atypical in nature as patient has been having constant chest pain for the last 2 days. Analgesics provided. Work-up initiated. Chest Pain HPI - General Chief Complaint: Chest Pain Stated Complaint: chest pain Time Seen by Provider: 04/21/21 15:30 Mode of Arrival: Wheelchair Limitations: No Limitations Description of Symptoms (Recalled from ER Triage Doc. by RN): c/o chest pain and fatigue
[2021-04-21 17:00] VITALS: BP 145/88; RESP 12
[2021-04-21 17:02] VITALS: BP 145/88; PULSE 62; RESP 12; TEMP 37; O2SAT 97
[2021-04-21 17:04] LABS: Basophils # 0.1 K/mm3 (0-0.2); Basophils % 1.2 % (0.1-2.0); Eosinophils # 0.3 K/mm3 (0.0-0.4); Eosinophils % 3.3 % (0.1-12.0); Hematocrit 42.9 % (37.0-47.0); Hemoglobin 14.1 g/dL (12.2-16.2); Lymphocytes # 3.1 K/mm3 (0.7-4.5); Lymphocytes % 31.5 % (10-50); Mean Corpuscular HGB Conc 32.9 g/dL (31.8-35.4); Mean Corpuscular Hemoglobin 29.6 pg (27.0-31.2); Mean Corpuscular Volume 89.9 fl (81-99); Mean Platelet Volume 9.2 fl (7.4-10.4); Monocytes # 0.5 K/mm3 (0.1-1.0); Monocytes % 4.7 % (1.7-9.3); Neutrophils # 5.8 K/mm3 (1.8-7.8); Neutrophils % 59.3 % (37.0-80.0); Platelet Count 271 K/mm3 (142-424); Red Blood Count 4.77 M/mm3 (4.20-5.40); Red Cell Distribution Width 13.4 % (11.5-17.5); White Blood Count 9.9 K/mm3 (4.8-10.8)
== END 2021-04-21 17:03 | disposition home or self-care (01) ==
PROVIDERS: Emergency Provider Emergency Medicine; PCP Family Medicine
DX: R07.89 Other chest pain (principal); J44.9 Chronic obstructive pulmonary disease, unspecified; E10.9 Type 1 diabetes mellitus without complications; I10 Essential (primary) hypertension; E78.5 Hyperlipidemia, unspecified; F17.210 Nicotine dependence, cigarettes, uncomplicated; Z79.899 Other long term (current) drug therapy
CPT/HCPCS: 71046; 80048; 84484; 85025; 93005; 96374; 96375; 99283; 99284; J2405

== ENCOUNTER 2021-05-19 12:35 | Outpatient (RCR) | payer OTHER, SELFPAY ==
--- NOTE | 2021-05-19 14:00 | HMH.OTOPEV ---
OT Inpatient Evaluation Rehab OT Outpatient Eval Start: 05/19/21 13:42 Freq: Status: Active Protocol: Document 05/19/21 13:44 HERBERT (Rec: 05/19/21 14:00 HERBERT [id number]) Electronically Signed By Zena Telles OT 05/19/21 13:44 Outpatient Therapy Subjective History Subjective History 55 year old female referred to skilled OP OT services from PCP for R wrist tendonitis. Patient recently underwent stent placement on 04/01/21 with incision from R wrist. Patient stated since procedure that she has had difficulty with AROM, gripping, lifting, completing everyday tasks such as brushing hair, folding laundry and cooking. Chief Complaint Pain,Decreased Wellness Specialist Strength Symptom Type Shooting Symptoms Relieved By Nothing Symptoms Aggravated By Physical Activity Prior Functional Limitations None Current Functional Limitations Reaching,Lifting,Recreation Activity Symptom Description Constant and Continuous Level of pain today (0-10) 7 Pain scale - at its best (0-10) 7 Pain scale - at its worst (0-10) 9 Wrist/Hand Eval Wrist Range of Motion Right Wrist Extension Active Range of Motion ( 45 degrees) Wrist Flexion Active Range of Motion ( 45 degrees) Wrist Radial Deviation Active Range of 10 Motion (degrees) Wrist Ulnar Deviation Active Range of 17 Motion (degrees) Forearm Supination Active Range of 90 Motion (degrees) Forearm Pronation Active Range of Motion 90 (degrees) Wrist Manual Muscle Testing Right Wrist Flexion Strength Grade 2+ Poor+ Wrist Radial Deviation Strength Grade 2+ Poor+ Wrist Ulnar Deviation Strength Grade 2+ Poor+ Forearm Supination Strength Grade 2+ Poor+ Forearm Pronation Strength Grade 2+ Poor+ Wellness Specialist/Pinch Strength Left Wellness Specialist Strength Measurement (lbs) 55 Right Wellness Specialist Strength Measurement (lbs) 0 OT Outpatient Assessment Impairments Problems/Impairments Impaired Range of Motion, Impaired Strength,Impaired Lifting,Impaired Dressing, Increased Edema,Subjective C/O Pain Prognosis Rehab Potential Good Clinical Impression Consistent with Diagnosis Yes Short Term Goals Number of Weeks 2 Increase Range of Motion Yes: AROM of R UE wrist
== END 2021-05-19 13:47 | disposition home or self-care (01) ==
LOC: OT 12:35
PROVIDERS: PCP Family Medicine; Visit Provider Family Medicine
DX: M25.531 Pain in right wrist (principal); M77.8 Other enthesopathies, not elsewhere classified
CPT/HCPCS: 97165

== ENCOUNTER → 2021-05-27 11:19 | Outpatient (CLI) | payer OTHER, SELFPAY ==
--- NOTE | 2021-05-27 11:20 | NM_ITS ---
APPROVED REPORT Exam: Nuclear Stress Test Indication: Angina, SOB, Palpitations, Syncope, Fatigue, HTN, DM, High cholesterol, Tobacco use, CAD, Hx of [place] Patient Location: Outpatient Stress Tech: Gypsy France AR Tech:Nguyen Weir, ARRT, RT (R)(N) Ht: 5 ft 2 in Wt: 220 lbs Bra Size: C HR: 68 bpm BP: 111/64 mmHg BSA: 1.99 m2 BMI: 40.2 History: Angina, SOB, Palpitations, Syncope, Fatigue, HTN, DM, High cholesterol, Tobacco use, CAD, Hx of [place] Procedure: Patient received a 0.4 mg of intravenous Lexiscan, resting heart rate 68 bpm, resting blood pressure 111/64 mmHg, with Lexiscan maximum heart rate achived was 76 bpm which is Less than 85 % of the maximum predicted heart rate and blood pressure was 113/68 mmHg. With Lexiscan, patient denied any complaint of chest pain. Electrocardiogram Resting electrocardiogram shows sinus rhythm, with Lexiscan there is less than 1.[address] segment depression noted from the baseline EKG. The EKG portion of the Lexiscan is nondiagnostic. Cardiac Stress and Resting SPECT Images: Cardiac Stress and Resting SPECT images were obtained using technetium 99m Myoview 32.0 mCi stress and 10.87 mCi at rest. Gated SPECT for analysis of segmental wall motion and calculation of the ejection fraction also done. Cardiac stress and resting SPECT images show diffuse tracer activity in the anterolateral and inferior wall which improves on the resting images suggestive of reversible ischemia, computer ejection fraction is 60% with no regional wall motion abnormality, right ventricle is normal size and contractility. Conclusion: 1. The EKG portion of the Lexiscan is nondiagnostic. 2. Scintigraphic evidence of reversible ischemia involving the anterolateral and inferior wall suggestive of multivessel coronary disease, computer derived ejection fraction is 60% with no regional wall motion abnormality, right ventricle is normal size and contractility. 3. Abnormal Lexiscan Myoview study. Electronically signed by : Feliz Sands MD 05/27/2021 19:09:28
--- NOTE | 2021-05-27 13:04 | HMH.ITSHM ---
Current Home Medications as stated by this patient Madie Nunes or field service representative. []RANOLAZINE LISINOPRIL ISOSORBIDE HYDROXYZINE GABAPENTIN FUROSEMIDE CLOPIDOGREL ASA NITRO METOPROLOL INSULIN CETIRIZINE ATORVASTATIN AMLODIPINE ALBUTEROL
--- NOTE | 2021-05-27 14:15 | CA_ITS ---
APPROVED REPORT Exam: Pharmacologic Technologist: Gypsy Heath, Ht: 5 ft 2 in Wt: 221 lbs BSA: 1.99 m2 HR: 65 bpm BP: 111/64 mmHg Indications: CP, CAD Medical History Medications: Amlodipine,,,,, Lisinopril,,,,, Aspirin,,,,, Gabapentin,,,,, Atorvastatin,,,,, Lasix,,,,, INSULIN,,,,, Albuterol,,,,, CloPIdogrel,,,,, Nitroglycerin,,,,, Imdur,,,,, Vistaril,,,,, Stress Test Details Test: LEXISCAN HR Resting HR: 68 bpm Max Heart Rate (APMHR): 167.639132 bpm Max HR Achieved: 76 bpm Target HR (85% APMHR): 141.924377 bpm % of APMHR: 45.51 BP Resting BP: 111/64 mmHg Max BP: 113/68 mmHg Recovery BP: 113.0/68.0 mmHg ECG Resting ECG: NSR, ST abn in leads V5 & V6. NS J point elevation in leads V1, V2 Clinical Exercise duration: 04:00 min Highest Stage Achieved: Stress ECG Conclusion Symptoms: mild increase in pretest CP, SOA, mild stomach discomfort. Arrhythmias/Ectopy: None. ST-T Changes: No significant changes compared to baseline. Conclusion: Non-diagnostic Lexiscan stress. Myoview images reported separately. Test Summary RECOVERY 03:15 . . 73 . 113/ 68 . . REST 03:56 . . 68 . 111/ 64 . . Stage 1 . . . . . . . Cardiolite injected Stage 1 01:00 . . 73 . . . . Stage 2 01:00 . . 70 . . . . Stage 3 01:00 . . 68 . 100/ 57 . . Stage 4 01:00 . . 67 . 98/ 59 . Stop exercise at 04:00 RECOVERY 01:00 . . 70 . . . . RECOVERY 02:00 . . 68 . 100/ 67 . . RECOVERY 03:00 . . 72 . 113/ 68 . . RECOVERY 03:15 . . 73 . 113/ 68 . . Electronically signed by : Feliz Sands MD 05/27/2021 19:06:00
== END ==
PROVIDERS: PCP Family Medicine; Visit Provider Nurse Practitioner Family
DX: I25.118 Atherosclerotic heart disease of native coronary artery with other forms of angina pectoris (principal); I35.1 Nonrheumatic aortic (valve) insufficiency; I10 Essential (primary) hypertension; E78.2 Mixed hyperlipidemia; Z95.5 Presence of coronary angioplasty implant and graft
CPT/HCPCS: 78452; 93017; A9502; J2785

== ENCOUNTER → 2021-06-05 07:50 | Outpatient (CLI) | payer OTHER, SELFPAY ==
[2021-06-05 09:11] LABS: Chloride 103 mmol/L (98-107); Potassium 3.6 mmoL/L (3.5-5.1); Sodium 135 mmol/L (136-145)
[2021-06-05 09:13] LABS: Bilirubin,Unconjugated 0.2 mg/dL (0.0-1.1); Blood Urea Nitrogen 11 mg/dl (7-17); Estimated Glomerular Filt Rate 88 ml/min (>60); GFR (African American) 106 ML/MIN (>60)
[2021-06-05 09:14] LABS: Alanine Aminotransferase 18 U/L (12-78); Albumin Level 3.7 g/dl (3.5-5.0); Alkaline Phosphatase 83 U/L (38-126); Anion Gap 11.6 mEq/L (5-15); Aspartate Amino Transferase 20 U/L (14-36); Bilirubin,Direct 0.2 mg/dl (0.0-0.4); Bilirubin,Indirect 0.2 mg/dL (0.0-0.9); Bilirubin,Total 0.4 mg/dl (0.2-1.3); Calcium 8.9 mg/dl (8.4-10.2); Carbon Dioxide 24 mmol/L (22.0-30.0); Chol/HDL Ratio 4.2 (1-3.5); Cholesterol 167 mg/dl (140-200); Glucose 216 mg/dl (74-100); HDL Cholesterol 40 mg/dl (40-60); Total Protein,Serum 6.4 g/dl (6.3-8.2); Triglycerides 191 mg/dl (30-150); VLDL Cholesterol 38 mg/dL (0-40)
[2021-06-05 09:25] LABS: Direct LDL Cholesterol 93.98 mg/dL (100-129)
[2021-06-05 09:30] LABS: Free Thyroxine Index 3.8 ug/dL (5.93-13.13); T4 (Thyroxine) 11.5 ug/dl (5.53-11.0); Triiodothryronine (T3) Uptake 33 % (23.5-40.5)
[2021-06-05 09:44] LABS: Thyroid Stimulating Hormone 2.82 uIU/mL (0.465-4.68)
== END ==
PROVIDERS: Visit Provider Nurse Practitioner Family
DX: I25.118 Atherosclerotic heart disease of native coronary artery with other forms of angina pectoris (principal); I35.1 Nonrheumatic aortic (valve) insufficiency; I10 Essential (primary) hypertension; E78.2 Mixed hyperlipidemia; E11.65 Type 2 diabetes mellitus with hyperglycemia; Z95.5 Presence of coronary angioplasty implant and graft; R53.83 Other fatigue; R94.31 Abnormal electrocardiogram [ECG] [EKG]; Z79.4 Long term (current) use of insulin
CPT/HCPCS: 36415; 80048; 80061; 80076; 84436; 84443; 84479

== ENCOUNTER 2021-06-07 14:56 | Emergency (ER) | payer OTHER, SELFPAY ==
--- NOTE | 2021-06-07 14:56 | ECG_ITS ---
APPROVED REPORT Exam: Resting ECG HR:87 bpm ECG Measurements Heart Rate 87 AXES AZ 175 P 65 QRSd 89 QRS 15 QT 386 T 93 QTc 431 Conclusion SINUS RHYTHM POSSIBLE LEFT ATRIAL ENLARGEMENT [-0.1mV P-WAVE IN V1/V2] Poor r wave progression. unchanged since 04/2020 ABNORMAL ECG UNCONFIRMED REPORT Electronically signed by : Carlos Eduardo Stewart MD 06/09/2021 16:00:34
[2021-06-07 14:58] VITALS: BP 134/98; PULSE 88; RESP 16; TEMP 36.7; O2SAT 96; BMI 40.2
--- NOTE | 2021-06-07 15:01 | HMH.EDCP ---
ED Disposition Clinical Impression: Chest pain Qualifiers: Chest pain type: unspecified Qualified Code(s): R07.9 - Chest pain, unspecified Disposition: Home, Self-Care Condition on Discharge: Fair Instructions: DI for Atypical Chest Pain Additional Instructions: Albino follow-up up appointments as scheduled. Especially follow-up with your care director within the next few days. Return to the emergency department if you feel worse in any way. Referrals: Carlos Eduardo Mijares MD [Primary Care Provider] - - Critical Care Critical Care Time: No Attestation: On , the high probability of a clinically significant, sudden or life threatening deterioration of the following system(s) required my full and direct attention, intervention and personal management. The time I documented below is in addition to time spent performing reported procedures but includes the following listed in this critical care notation. Medical Decision Making - Medical Records Medical records reviewed: Yes: I reviewed the patient's medical records. - Ray Inquiry Pt receiving controlled substance: No Vital Signs: 06/07/21 14:58 06/07/21 16:00 06/07/21 16:30 Temperature 98.0 F Temperature Source Oral Pulse Rate 83 86 Pulse Rate [Right] 88 Respiratory Rate 16 23 17 Blood Pressure 137/89 114/80 Blood Pressure [Right Arm] 134/98 H Blood Pressure Mean 95 87 Blood Pressure Mean [Right Arm] 110 Blood Pressure Source [Right Arm] Automatic Cuff Blood Pressure Position [Right Arm] Supine 02 Sat by Pulse Oximetry 96 96 95 Oxygen Delivery Method Room Air - Lab Data Lab results reviewed: Yes: I reviewed the patient's lab results. Lab Results 06/07/21 15:56: Sodium 134 L, Potassium 4.1, Chloride 100, Carbon Dioxide 24, Anion Gap 14.1, BUN 13, Creatinine 0.80, Estimated Creat Clear 64, Estimated GFR 75, Est GFR ( Amer) 90, Glucose 203 H, Calcium 8.8, Troponin I < 0.01 Result diagrams: 06/07/21 15:56 Orders (Tests/Meds): ORDERS Category Date Time Status Complete Blood Count Auto Diff Stat Lab 06/07/21 16:25 Received Troponin I Q3H Lab 06/07/21 18:30 Ordered Troponin I Q3H Lab 06/07/21 21:30 Ordered - Radiology Data #1 Image(s): Chest Image Reviewed: Yes I reviewed the patient's radiology results, Yes I reviewed the patient's radiology image, Yes I have reviewed radiologist's interpretation Preliminary Findings: Normal/NAD - ECG Data Tracing #1 I reviewed this ECG and interpreted as documented below: Patient is EKG was performed at 1457. Shows a normal sinus rhythm with a ventricular rate of 87 bpm. There is some mild left atrial enlargement. There are some Q waves in V1 and V2 suggestive of prior septal infarct consistent with the patient's history of infarct. There are no ST elevations. Mild nonspecific ST depressions and V4 through V6 as well as II. Is unchanged from an ECG performed on April 21 of this year. Normal Sinus Rhythm: Yes - DIMA Score for Non-Stemi Age of Patient: 50-59 years old Heart Rate: 70-89 bpm Systolic Blood Pressure: 120-139 mmhg Serum Creatinine: 0.80-1.19 mg/dl CHF Killip Class: I-No CHF Other Risk Factors: None Non-Stemi Risk Score: 91 Medical Decision Narrative: The patient's work-up in the emergency department did not show any life-threatening or dangerous causes for the patient's chest pain. She has had this pain for several days. The only difference today was that it radiated to the elbow. The patient's troponin is undetectable. Her EKG does not show any acute ischemia. Her Dima score is low. X-ray is unremarkable. I feel that the patient can be safely discharged home with close follow-up with her care director as scheduled. Chest Pain HPI - General Chief Complaint: Chest Pain Stated Complaint: chest pain Time Seen by Provider: 06/07/21 15:01 Mode of Arrival: Ambulatory Source of Information: Patient Limitations: No Limitations - History of P
[2021-06-07 15:20] VITALS: BMI 88.6
--- NOTE | 2021-06-07 15:22 | XR_ITS ---
PROCEDURE INFORMATION: Exam: XR Chest Exam date and time: 06/07/2021 3:29 PM Age: 56 years old Clinical indication: Angina pectoris and chest wall pain; Additional info: Chest pain TECHNIQUE: Imaging protocol: XR of the chest. Views: 1 view. COMPARISON: CR XR CHEST 2V 04/21/2021 3:28 PM FINDINGS: Lungs: Unremarkable. No consolidation. Pleural spaces: Unremarkable. No pleural effusion. No pneumothorax. Heart/Mediastinum: Unremarkable. No cardiomegaly. Bones/joints: Unremarkable. IMPRESSION: No acute findings.
[2021-06-07 16:00] VITALS: BP 137/89; PULSE 83; RESP 23; O2SAT 96
--- NOTE | 2021-06-07 16:00 | PC.NURSE ---
Pt difficult stick. Multiple people attempted with no success. Pt advises she is typically a hard stick. I attempted x1 and vein blew. Took US into room and was able to obtain 20g in the right upper arm. Obtained green and purple top labs, blood draw began to slow down. Decided to stop draw so we would not lose IV. IV flushed and aram back. Notified lab need for blood draw. Troponin will be delayed for this reason.
[2021-06-07 16:13] LABS: Chloride 100 mmol/L (98-107)
[2021-06-07 16:14] LABS: Potassium 4.1 mmoL/L (3.5-5.1); Sodium 134 mmol/L (136-145)
[2021-06-07 16:16] LABS: Blood Urea Nitrogen 13 mg/dl (7-17); Creatinine Clearance Estimated 64 mL/min (50-200); Estimated Glomerular Filt Rate 75 ml/min (>60); GFR (African American) 90 ML/MIN (>60)
[2021-06-07 16:17] LABS: Anion Gap 14.1 mEq/L (5-15); Calcium 8.8 mg/dl (8.4-10.2); Carbon Dioxide 24 mmol/L (22.0-30.0); Glucose 203 mg/dl (74-100)
[2021-06-07 16:30] VITALS: BP 114/80; PULSE 86; RESP 17; O2SAT 95
[2021-06-07 16:31] LABS: Troponin I < 0.01 ng/ml (0.00-0.034)
[2021-06-07 16:49] LABS: Basophils # 0.3 K/mm3 (0-0.2); Basophils % 2.3 % (0.1-2.0); Eosinophils # 0.2 K/mm3 (0.0-0.4); Eosinophils % 2.2 % (0.1-12.0); Hematocrit 46.7 % (37.0-47.0); Lymphocytes # 2.8 K/mm3 (0.7-4.5); Lymphocytes % 25.4 % (10-50); Mean Corpuscular HGB Conc 34.3 g/dL (31.8-35.4); Mean Corpuscular Hemoglobin 30.2 pg (27.0-31.2); Mean Corpuscular Volume 88.2 fl (81-99); Mean Platelet Volume 8.6 fl (7.4-10.4); Monocytes # 0.6 K/mm3 (0.1-1.0); Monocytes % 5.5 % (1.7-9.3); Neutrophils % 64.5 % (37.0-80.0); Platelet Count 355 K/mm3 (142-424); Red Blood Count 5.29 M/mm3 (4.20-5.40); White Blood Count 10.8 K/mm3 (4.8-10.8)
[2021-06-07 17:07] VITALS: BP 119/65; PULSE 89; RESP 16; TEMP 36.9; O2SAT 98
== END 2021-06-07 17:08 | disposition home or self-care (01) ==
PROVIDERS: Emergency Provider Emergency Medicine; PCP Family Medicine
DX: R07.9 Chest pain, unspecified (principal); R94.31 Abnormal electrocardiogram [ECG] [EKG]; R94.39 Abnormal result of other cardiovascular function study; R42 Dizziness and giddiness; R68.84 Jaw pain; M25.522 Pain in left elbow; I10 Essential (primary) hypertension; I25.2 Old myocardial infarction; E78.5 Hyperlipidemia, unspecified; M19.90 Unspecified osteoarthritis, unspecified site; J44.9 Chronic obstructive pulmonary disease, unspecified; F17.210 Nicotine dependence, cigarettes, uncomplicated; Z79.02 Long term (current) use of antithrombotics/antiplatelets; Z79.4 Long term (current) use of insulin; Z79.51 Long term (current) use of inhaled steroids; Z79.899 Other long term (current) drug therapy; Z88.0 Allergy status to penicillin; Z88.6 Allergy status to analgesic agent; Z88.8 Allergy status to other drugs, medicaments and biological substances; Z95.5 Presence of coronary angioplasty implant and graft
CPT/HCPCS: 71045; 80048; 84484; 85025; 93005; 99285

== ENCOUNTER → 2021-06-11 10:53 | Outpatient (CLI) | payer OTHER, SELFPAY ==
[2021-06-11 11:21] LABS: Basophils # 0.1 K/mm3 (0-0.2); Basophils % 1.1 % (0.1-2.0); Eosinophils # 0.3 K/mm3 (0.0-0.4); Hematocrit 47.2 % (37.0-47.0); Hemoglobin 15.9 g/dL (12.2-16.2); Lymphocytes # 2.4 K/mm3 (0.7-4.5); Lymphocytes % 23.2 % (10-50); Mean Corpuscular HGB Conc 33.7 g/dL (31.8-35.4); Mean Corpuscular Hemoglobin 30.1 pg (27.0-31.2); Mean Corpuscular Volume 89.3 fl (81-99); Mean Platelet Volume 8.6 fl (7.4-10.4); Monocytes # 0.6 K/mm3 (0.1-1.0); Monocytes % 5.9 % (1.7-9.3); Neutrophils # 6.8 K/mm3 (1.8-7.8); Neutrophils % 66.7 % (37.0-80.0); Platelet Count 319 K/mm3 (142-424); Red Blood Count 5.29 M/mm3 (4.20-5.40); Red Cell Distribution Width 13.7 % (11.5-17.5); White Blood Count 10.2 K/mm3 (4.8-10.8)
== END ==
PROVIDERS: Visit Provider Nurse Practitioner Family
DX: Z01.812 Encounter for preprocedural laboratory examination (principal); Z11.52 Encounter for screening for COVID-19; I20.9 Angina pectoris, unspecified; I35.1 Nonrheumatic aortic (valve) insufficiency; I10 Essential (primary) hypertension; E78.5 Hyperlipidemia, unspecified; I51.89 Other ill-defined heart diseases; Z95.5 Presence of coronary angioplasty implant and graft
CPT/HCPCS: 36415; 85025; C9803; U0003; U0005

== ENCOUNTER 2021-06-13 08:03 | Day surgery (SDC) | payer OTHER, SELFPAY ==
[2021-06-13] VITALS (14 sets, daily range): BP systolic 104–141; BP diastolic 59–80; PULSE 50–87; RESP 18–20; TEMP 36.6–36.8; O2SAT 90–97; BMI 40.2
--- NOTE | 2021-06-13 | IR_ITS ---
APPROVED REPORT Patient Location: Outpatient Supervisor Production Department: KOKO Harrison RT (R) PROCEDURES Selective coronary angiogram Drug-eluting stent deployment to the mid ramus intermedius INDICATION Coronary artery disease, Angina pectoris, High risk abnormal Myoview Informed consent was obtained prior to the procedure. COMPLICATIONS None Estimated Blood Loss: Less than 10 mls TECHNIQUE One percent lidocaine used to anesthetize the right anterior aspect of the wrist. The right radial artery was accessed via the Seldinger technique. A 6 [place] sheath was placed in the right radial artery. 2.5 mg of verapamil, 800 mcg of nitroglycerin, 1mg Lidocaine and 5000 U Heparin were given through the arterial sheath. The papa catheter was also used to perform selective coronary angiogram. At the end the diagnostic angiogram therapeutic heparin was administered giving a therapeutic ACT and the guide catheter was left in the left main artery followed by a Choice PT extra-support wire. A 3 mm x 18 mm Xience drug-eluting stent was deployed at 18 anthony reducing the severe stenosis to 0%. JORGE-3 flow was present before and after the procedure. There was initial feeling that the first diagonal artery should be stented based on the abnormal Myoview therefore the wire was placed into this area. The stent was not easily deployed and after consideration it was decided not to revascularize the diagonal artery. At the end of the procedure the apparatus was removed the sheath was removed hemostasis was achieved using TR banding patient was transferred to the postop already in stable condition ANGIOGRAPHIC RESULTS The left main artery Normal The left anterior descending artery Is proximally normal followed by a mid vessel smooth 20% stenosis. A 2.25 mm first diagonal artery has an ostial proximal 70 to 80% stenosis The circumflex artery Is a large dominant vessel and gives rise to a large ramus intermedius which has a mid vessel 70% stenosis. There is a marginal branch off this ramus intermedius which is less than 2 mm in diameter and has an ostial 80% stenosis. At the end of the procedure the sidebranch was open with an ostial 80 to 90% stenosis accompanied by JORGE-3 flow. The remaining circumflex artery has 10 to 20% stenosis distal to the first obtuse marginal/ramus intermedius The right coronary artery Nondominant and has a stent in the ostial proximal segment which is widely patent free of in-stent restenosis The SCHWAB ventriculogram reveals Not performed The left ventricular end-diastolic pressure Not measured IMPRESSION Severe disease in the mid large ramus intermedius with successful stenting reducing the stenosis to 0% Persistent moderate to severe disease in a 2.25 mm first diagonal artery which is best managed medically PLAN 1. Dual antiplatelet therapy 2. Risk factor modification 3. Cardiac rehabilitation 4. Avoidance of tobacco products 5. LDL less than 55 to be achieved with high intensity statin Electronically signed by : Vj Lacy MD 06/13/2021 11:15:04
[2021-06-13 11:48] LABS: CATHL Activated Clotting Time 385 SEC (74-125)
--- NOTE | 2021-06-13 14:39 | HMH.PHACLD ---
Madie Nunes has received discharge medication counseling on the following medications: PATIENT IS CURRENTLY TAKING PLAVIX 75 MG DAILY, ASPIRIN 81 MG DAILY, ATORVASTATIN 40 MG HS, METOPROLOL 100 MG BID, AND LISINOPRIL 40 MG DAILY.
== END 2021-06-13 14:37 | disposition home or self-care (01) ==
LOC: CATHLAB 08:04
PROVIDERS: PCP Family Medicine; Visit Provider Internal Medicine
DX: I25.118 Atherosclerotic heart disease of native coronary artery with other forms of angina pectoris (principal); R94.39 Abnormal result of other cardiovascular function study; E11.9 Type 2 diabetes mellitus without complications; Z79.4 Long term (current) use of insulin; Z79.899 Other long term (current) drug therapy; Z95.5 Presence of coronary angioplasty implant and graft; J44.9 Chronic obstructive pulmonary disease, unspecified; I77.1 Stricture of artery; I10 Essential (primary) hypertension; F17.210 Nicotine dependence, cigarettes, uncomplicated
CPT/HCPCS: 85347; 92928; 99152; 99153; C1725; C1760; C1769; C1875; C9600; J1644; Q9967

== ENCOUNTER 2021-06-26 09:41 | Outpatient (RCR) | payer OTHER, SELFPAY | END 2021-09-02 11:00 | disposition home or self-care (01) | LOC: PT 09:41 | PROVIDERS: Visit Provider Internal Medicine | DX: I25.10 Atherosclerotic heart disease of native coronary artery without angina pectoris (principal); Z95.5 Presence of coronary angioplasty implant and graft | CPT/HCPCS: 93798 ==

== ENCOUNTER 2021-09-09 10:16 | Emergency (ER) | payer OTHER, SELFPAY ==
[2021-09-09 10:20] VITALS: BP 137/95; PULSE 94; RESP 20; TEMP 37; O2SAT 97; BMI 39.3
[2021-09-09 10:25] VITALS: BMI 39.3
[2021-09-09 10:26] LABS: Microscopic, Urine URINE MICROSCOPIC (MICROSCOPIC)
--- NOTE | 2021-09-09 10:26 | PC.NURSE ---
LISBETH MCKNIGHT at
[2021-09-09 10:28] LABS: Appearance,Urine SL CLOUDY (Clear); Bilirubin,Urine Negative (Negative); Blood, Urine Negative (Negative); Color,Urine YELLOW (Yellow); Glucose,Urine (UA) 3+ (Negative); Ketones,Urine Negative (Negative); Leukocyte Esterase,Urine Negative (Negative); Nitrate,Urine Negative (Negative); PH,Urine 5.5 (5.0-8.5); Protein,Urine Negative (Negative); Specific Gravity, Urine 1.025 (1.005-1.030); Urobilinogen,Urine 0.2 EU/dl (0.2)
--- NOTE | 2021-09-09 10:28 | HMH.EDABDPAI ---
ED Disposition Clinical Impression: Chronic pancreatitis Qualifiers: Pancreatitis type: other Qualified Code(s): K86.1 - Other chronic pancreatitis Disposition: Home, Self-Care Condition on Discharge: Good Instructions: Chronic Pancreatitis, DI for Pancreatitis Additional Instructions: clear liquid diet 2 days, f/u PCP, return here for worse Prescriptions: Oxycodone HCl/Acetaminophen [Percocet 7.5/325mg tablet] 1 tab PO TID PRN #12 tab PRN Reason: Moderate To Severe Pain Transmission Status: Sent to [facility] Ondansetron [Zofran 4mg ODT] 4 mg PO TIDP PRN #12 tab PRN Reason: Nausea Transmission Status: Pending to [facility] Referrals: Carlos Eduardo Mijares MD [Primary Care Provider] - - Critical Care Critical Care Time: No Attestation: On 09/09/21, the high probability of a clinically significant, sudden or life threatening deterioration of the following system(s) required my full and direct attention, intervention and personal management. The time I documented below is in addition to time spent performing reported procedures but includes the following listed in this critical care notation. Medical Decision Making - Medical Records Medical records reviewed: Yes: I reviewed the patient's medical records. - Ray Inquiry Pt receiving controlled substance: No Vital Signs: 09/09/21 10:20 09/09/21 10:30 09/09/21 11:00 Temperature 98.6 F Temperature Source Oral Pulse Rate 86 70 Pulse Rate [Brachial] 94 H Respiratory Rate 20 Blood Pressure 143/88 H 158/88 H Blood Pressure [Right Arm] 137/95 H Blood Pressure Mean 101 103 Blood Pressure Mean [Right Arm] 109 Blood Pressure Source [Right Arm] Manual Cuff/ Doppler Blood Pressure Position [Right Arm] Standing 02 Sat by Pulse Oximetry 97 93 L 94 L Oxygen Delivery Method Room Air 09/09/21 11:31 Temperature Temperature Source Pulse Rate 68 Pulse Rate [Brachial] Respiratory Rate Blood Pressure 128/73 Blood Pressure [Right Arm] Blood Pressure Mean 91 Blood Pressure Mean [Right Arm] Blood Pressure Source [Right Arm] Blood Pressure Position [Right Arm] 02 Sat by Pulse Oximetry 94 L Oxygen Delivery Method - Lab Data Lab Results 09/09/21 10:23: Urine Color Yellow, Urine Appearance Sl cloudy, Urine pH 5.5, Ur Specific [place] 1.025, Urine Protein Negative, Urine Glucose (UA) 3+, Urine Ketones Negative, Urine Blood Negative, Urine Nitrate Negative, Urine Bilirubin Negative, Urine Urobilinogen 0.2, Ur Leukocyte Esterase Negative, Urine RBC None, Urine WBC None, Ur Squamous Epith Cells 10-20, Urine Bacteria Trace 09/09/21 10:40: WBC 13.6 H, RBC 4.96, Hgb 15.0, Hct 47.7 H, MCV 96.3, MCH 30.3, MCHC 31.5 L, RDW 14.7, Plt Count 301, MPV 9.1, Neut % (Auto) 76.1, Lymph % (Auto) 17.4, [place] % (Auto) 3.6, Eos % (Auto) 1.7, Baso % (Auto) 1.2, Neut # (Auto) 10.4 H, Lymph # (Auto) 2.4, [place] # (Auto) 0.5, Eos # (Auto) 0.2, Baso # (Auto) 0.2 09/09/21 10:40: Sodium 135 L, Potassium 3.7, Chloride 104, Carbon Dioxide 25, Anion Gap 9.7, BUN 8, Creatinine 0.60, Estimated Creat Clear 165, Estimated GFR 104, Est GFR ( Amer) 126, Glucose 218 H, Calcium 8.8, Total Bilirubin 0.5, AST 31, ALT 21, Alkaline Phosphatase 87, Total Protein 6.8, Albumin 3.9, Globulin 2.9, Albumin/Globulin Ratio 1.3, Lipase 376 H Result diagrams: 09/09/21 10:40 09/09/21 10:40 Orders (Tests/Meds): ED MEDICATIONS Discontinued Medications Generic Name Dose Route Start Last Admin Trade Name Freq PRN Reason Stop Dose Admin Hydromorphone HCl 1 mg 09/09/21 10:27 09/09/21 10:47 Hydromorphone 2mg/Ml Syringe IV 09/09/21 10:28 1 mg ONCE ONE Administration Sodium Chloride 1,000 mls @ 999 mls/hr 09/09/21 10:30 09/09/21 10:46 Sod Chlor 0.9% 1000ml Bag IV 09/09/21 11:30 999 mls/hr .Q1H1M WILDER Administration Metoclopramide HCl 10 mg 09/09/21 10:28 09/09/21 10:47 Metoclopramide Hcl 10mg/2ml Vial IVP 09/09/21 10:29
[2021-09-09 10:30] VITALS: BP 143/88; PULSE 86; O2SAT 93
--- NOTE | 2021-09-09 10:30 | PC.NURSE ---
1026 MD AT BEDSIDE FOR ASSESSMENT
--- NOTE | 2021-09-09 10:33 | PC.NURSE ---
Lynda Duff RN at BS to start IV and get labs
[2021-09-09 10:41] LABS: Bacteria,Urine Trace /lpf
--- NOTE | 2021-09-09 10:56 | PC.NURSE ---
PT MEDICATED PER EMAR, ICE CHIPS PROVIDED. NO FURTHER NEEDS AT THIS TIME
[2021-09-09 10:59] LABS: Basophils # 0.2 K/mm3 (0-0.2); Basophils % 1.2 % (0.1-2.0); Eosinophils # 0.2 K/mm3 (0.0-0.4); Eosinophils % 1.7 % (0.1-12.0); Hematocrit 47.7 % (37.0-47.0); Lymphocytes # 2.4 K/mm3 (0.7-4.5); Lymphocytes % 17.4 % (10-50); Mean Corpuscular HGB Conc 31.5 g/dL (31.8-35.4); Mean Corpuscular Hemoglobin 30.3 pg (27.0-31.2); Mean Corpuscular Volume 96.3 fl (81-99); Mean Platelet Volume 9.1 fl (7.4-10.4); Monocytes # 0.5 K/mm3 (0.1-1.0); Monocytes % 3.6 % (1.7-9.3); Neutrophils # 10.4 K/mm3 (1.8-7.8); Neutrophils % 76.1 % (37.0-80.0); Platelet Count 301 K/mm3 (142-424); Red Blood Count 4.96 M/mm3 (4.20-5.40); Red Cell Distribution Width 14.7 % (11.5-17.5); White Blood Count 13.6 K/mm3 (4.8-10.8)
[2021-09-09 11:00] VITALS: BP 158/88; PULSE 70; O2SAT 94
[2021-09-09 11:01] LABS: Chloride 104 mmol/L (98-107); Potassium 3.7 mmoL/L (3.5-5.1); Sodium 135 mmol/L (136-145)
[2021-09-09 11:03] LABS: Alanine Aminotransferase 21 U/L (12-78); Alkaline Phosphatase 87 U/L (38-126); Anion Gap 9.7 mEq/L (5-15); Aspartate Amino Transferase 31 U/L (14-36); Bilirubin,Total 0.5 mg/dl (0.2-1.3); Blood Urea Nitrogen 8 mg/dl (7-17); Carbon Dioxide 25 mmol/L (22.0-30.0); Creatinine Clearance Estimated 165 mL/min (50-200); Estimated Glomerular Filt Rate 104 ml/min (>60); GFR (African American) 126 ML/MIN (>60); Lipase 376 U/L (23-300)
[2021-09-09 11:04] LABS: Albumin Level 3.9 g/dl (3.5-5.0); Albumin/Globulin Ratio 1.3 (1.1-1.8); Calcium 8.8 mg/dl (8.4-10.2); Globulin 2.9 g/dL (1.3-3.2); Glucose 218 mg/dl (74-100); Total Protein,Serum 6.8 g/dl (6.3-8.2)
[2021-09-09 11:31] VITALS: BP 128/73; PULSE 68; O2SAT 94
--- NOTE | 2021-09-09 11:33 | PC.NURSE ---
PT SLEEPING SOUNDLY ON LEFT SIDE, NO DISTRESS NOTED. AWAKENS EASILY. NO NEEDS VOICED
--- NOTE | 2021-09-09 11:39 | PC.NURSE ---
ED MD AT BEDSIDE FOR REEVALUATION
[2021-09-09 11:50] VITALS: BP 128/73; PULSE 72; RESP 18; TEMP 36.9; O2SAT 98
== END 2021-09-09 11:50 | disposition home or self-care (01) ==
PROVIDERS: Emergency Provider Emergency Medicine; PCP Family Medicine
DX: K86.1 Other chronic pancreatitis (principal); R07.9 Chest pain, unspecified; R42 Dizziness and giddiness; R94.31 Abnormal electrocardiogram [ECG] [EKG]; R94.39 Abnormal result of other cardiovascular function study; I10 Essential (primary) hypertension; I25.119 Atherosclerotic heart disease of native coronary artery with unspecified angina pectoris; I25.2 Old myocardial infarction; E78.5 Hyperlipidemia, unspecified; G43.909 Migraine, unspecified, not intractable, without status migrainosus; M19.90 Unspecified osteoarthritis, unspecified site; F17.210 Nicotine dependence, cigarettes, uncomplicated; Z79.4 Long term (current) use of insulin; Z79.82 Long term (current) use of aspirin; Z79.899 Other long term (current) drug therapy; Z88.0 Allergy status to penicillin
CPT/HCPCS: 80053; 81001; 83690; 85025; 96361; 96374; 96375; 99284

== ENCOUNTER 2021-09-11 17:23 | Emergency (ER) | payer OTHER, SELFPAY ==
[2021-09-11 17:25] VITALS: BP 192/112; PULSE 78; RESP 16; TEMP 36.5; O2SAT 98; BMI 39.3; BMI 46.0
--- NOTE | 2021-09-11 17:55 | CT_ITS ---
PROCEDURE INFORMATION: Exam: CT Abdomen And Pelvis With Contrast Exam date and time: 09/11/2021 6:54 PM Age: 56 years old Clinical indication: Abdominal pain; Generalized; Prior surgery; Additional info: Recurrent abdominal pain TECHNIQUE: Imaging protocol: Computed tomography of the abdomen and pelvis with contrast. Radiation optimization: All CT scans at this facility use at least one of these dose optimization techniques: automated exposure control; mA and/or kV adjustment per patient size (includes targeted exams where dose is matched to clinical indication); or iterative reconstruction. Contrast material: ISOVUE; Contrast volume: 75 ml; Contrast route: IV; COMPARISON: CR XR CHEST PORTABLE 06/07/2021 3:29 PM FINDINGS: Liver: Hepatic steatosis. Low lying left lobe of the liver measuring 21 cm in length. Findings suggestive of a Lory's lobe rather than hepatomegaly. Gallbladder and bile ducts: Cholecystectomy. Pancreas: Normal. No ductal dilation. Spleen: Scattered granulomas are demonstrated in the spleen. Adrenal glands: Mild prominence of the left adrenal gland. Could not exclude small adenoma. Measuring approximately 4 mm. Kidneys and ureters: Small left renal cysts. Stomach and bowel: Retained fecal material throughout the colon most pronounced in the region of the ascending and transverse colon. Findings suggestive of moderate stool burden. Appendix: No evidence of appendicitis. Intraperitoneal space: Unremarkable. No free air. No significant fluid collection. Vasculature: Unremarkable. No abdominal aortic aneurysm. Lymph nodes: Unremarkable. No enlarged lymph nodes. Urinary bladder: Unremarkable as visualized. Reproductive: approximate 2.8 cm left ovarian cyst. Surgical clips in both adnexal regions. Bones/joints: Lumbar spondylosis with mild changes of disc degeneration most pronounced at L5-S1. Soft tissues: Unremarkable. IMPRESSION: 1. Fluid in nondistended small bowel loops. Mild bowel wall thickening. Findings compatible with changes of enteritis. 2. Hepatic steatosis. 3. Moderate stool burden. 4. Please see above report for discussion of nonacute findings. COMMENTS: 1. Consistent with the [place]'s Incidental Findings Committee white paper (J Am Bernarda Radiol 2018): Any incidental renal lesion less than 1 cm or classified as too small to characterize, or any incidental cystic renal lesion characterized as simple-appearing, is likely benign. No follow-up imaging is recommended for these lesions per consensus recommendations based on imaging criteria. 2. Is is
--- NOTE | 2021-09-11 17:55 | HMH.EDGENADL ---
ED Disposition Clinical Impression: Abdominal pain Qualifiers: Abdominal location: epigastric Qualified Code(s): R10.13 - Epigastric pain Chronic pancreatitis Qualifiers: Pancreatitis type: unspecified pancreatitis type Qualified Code(s): K86.1 - Other chronic pancreatitis Disposition: Home, Self-Care Condition on Discharge: Fair Instructions: Acute Abdominal Pain, Chronic Pancreatitis Referrals: Carlos Eduardo Mijares MD [Primary Care Provider] - 7-14 days - Critical Care Critical Care Time: No Attestation: On 09/11/21, the high probability of a clinically significant, sudden or life threatening deterioration of the following system(s) required my full and direct attention, intervention and personal management. The time I documented below is in addition to time spent performing reported procedures but includes the following listed in this critical care notation. Medical Decision Making - Medical Records Medical records reviewed: Yes: I reviewed the patient's medical records. - Ray Inquiry Pt receiving controlled substance: No Vital Signs: 09/11/21 17:25 09/11/21 18:00 09/11/21 18:30 Temperature 97.7 F Temperature Source Oral Pulse Rate 65 62 Pulse Rate [Radial] 78 Respiratory Rate 16 16 16 Blood Pressure 142/86 H 141/85 H Blood Pressure [Right Arm] 192/112 H Blood Pressure Mean [Right Arm] 138 Blood Pressure Position [Right Arm] Sitting 02 Sat by Pulse Oximetry 98 96 98 Oxygen Delivery Method Room Air Room Air Room Air - Lab Data Lab results reviewed: Yes: I reviewed the patient's lab results. Lab Results 09/11/21 18:31: WBC 10.4, RBC 4.97, Hgb 15.3, Hct 46.4, MCV 93.2, MCH 30.7, MCHC 33.0, RDW 14.6, Plt Count 299, MPV 8.4, Neut % (Auto) 60.2, Lymph % (Auto) 30.6, [place] % (Auto) 3.9, Eos % (Auto) 3.7, Baso % (Auto) 1.7, Neut # (Auto) 6.3, Lymph # (Auto) 3.2, [place] # (Auto) 0.4, Eos # (Auto) 0.4, Baso # (Auto) 0.2 09/11/21 18:31: Sodium 137, Potassium 4.1, Chloride 100, Carbon Dioxide 32 H, Anion Gap 9.1, BUN 9, Creatinine 0.70, Estimated Creat Clear 73, Estimated GFR 87, Est GFR ( Amer) 106, Glucose 125 H, Calcium 9.0, Total Bilirubin < 0.1 L, AST 23 D, ALT 15 D, Alkaline Phosphatase 77, Total Protein 6.9, Albumin 3.8, Globulin 3.1, Albumin/Globulin Ratio 1.2, Lipase 181 09/11/21 18:42: Urine Color Yellow, Urine Appearance Clear, Urine pH 6.0, Ur Specific [place] 1.025, Urine Protein Negative, Urine Glucose (UA) 3+, Urine Ketones Negative, Urine Blood Negative, Urine Nitrate Negative, Urine Bilirubin Negative, Urine Urobilinogen 0.2, Ur Leukocyte Esterase Negative, Urine RBC None, Ur Squamous Epith Cells Occasional, Urine Bacteria None Result diagrams: 09/11/21 18:31 09/11/21 18:31 Orders (Tests/Meds): ED MEDICATIONS Generic Name Dose Route Start Last Admin Trade Name Freq PRN Reason Stop Dose Admin Sodium Chloride 1,000 mls @ 999 mls/hr 09/11/21 17:45 09/11/21 18:37 Sod Chlor 0.9% 1000ml Bag IV 09/11/21 18:45 999 mls/hr .Q1H1M WILDER Administration Discontinued Medications Generic Name Dose Route Start Last Admin Trade Name Freq PRN Reason Stop Dose Admin Iopamidol 75 ml 09/11/21 19:07 09/11/21 19:07 Iopamidol-370 (76%);100ml Bottle IV 09/11/21 19:08 75 ml ONCE ONE Administration Morphine Sulfate 4 mg 09/11/21 17:54 09/11/21 18:36 Morphine 4mg/Ml Syringe IV 09/11/21 17:55 4 mg ONCE ONE Administration Ondansetron HCl 4 mg 09/11/21 17:41 09/11/21 18:36 Ondansetron 4mg/2ml Vial IV 09/11/21 17:42 4 mg ONCE ONE Administration Sodium Chloride 10 ml 09/11/21 19:07 09/11/21 19:07 Sodium Chloride 0.9% 10ml Syr (Rad Only) IV 09/11/21 19:08 10 ml ONCE ONE Administration General Adult HPI - General Stated complaint: Abd Pain Time Seen by Provider: 09/11/21 17:55 Mode of Arrival: Ambulatory Source of Information: Patient Limitations: No Limitations - History of Present Illness HPI narrative: 56-year-
[2021-09-11 18:00] VITALS: BP 142/86; PULSE 65; RESP 16; O2SAT 96
--- NOTE | 2021-09-11 18:27 | PC.NURSE ---
checked on pt everything good
[2021-09-11 18:30] VITALS: BP 141/85; PULSE 62; RESP 16; O2SAT 98
[2021-09-11 18:43] LABS: Basophils # 0.2 K/mm3 (0-0.2); Basophils % 1.7 % (0.1-2.0); Eosinophils # 0.4 K/mm3 (0.0-0.4); Eosinophils % 3.7 % (0.1-12.0); Hematocrit 46.4 % (37.0-47.0); Hemoglobin 15.3 g/dL (12.2-16.2); Lymphocytes # 3.2 K/mm3 (0.7-4.5); Lymphocytes % 30.6 % (10-50); Mean Corpuscular Hemoglobin 30.7 pg (27.0-31.2); Mean Corpuscular Volume 93.2 fl (81-99); Mean Platelet Volume 8.4 fl (7.4-10.4); Monocytes # 0.4 K/mm3 (0.1-1.0); Monocytes % 3.9 % (1.7-9.3); Neutrophils # 6.3 K/mm3 (1.8-7.8); Neutrophils % 60.2 % (37.0-80.0); Platelet Count 299 K/mm3 (142-424); Red Blood Count 4.97 M/mm3 (4.20-5.40); Red Cell Distribution Width 14.6 % (11.5-17.5); White Blood Count 10.4 K/mm3 (4.8-10.8)
[2021-09-11 18:48] LABS: Alanine Aminotransferase 15 U/L (12-78); Albumin Level 3.8 g/dl (3.5-5.0); Albumin/Globulin Ratio 1.2 (1.1-1.8); Alkaline Phosphatase 77 U/L (38-126); Anion Gap 9.1 mEq/L (5-15); Aspartate Amino Transferase 23 U/L (14-36); Blood Urea Nitrogen 9 mg/dl (7-17); Carbon Dioxide 32 mmol/L (22.0-30.0); Chloride 100 mmol/L (98-107); Creatinine Clearance Estimated 73 mL/min (50-200); Estimated Glomerular Filt Rate 87 ml/min (>60); GFR (African American) 106 ML/MIN (>60); Globulin 3.1 g/dL (1.3-3.2); Glucose 125 mg/dl (74-100); Lipase 181 U/L (23-300); Potassium 4.1 mmoL/L (3.5-5.1); Sodium 137 mmol/L (136-145); Total Protein,Serum 6.9 g/dl (6.3-8.2)
[2021-09-11 18:49] LABS: Microscopic, Urine URINE MICROSCOPIC (MICROSCOPIC)
[2021-09-11 18:50] LABS: Bilirubin,Total < 0.1 mg/dl (0.2-1.3)
[2021-09-11 18:53] LABS: Appearance,Urine CLEAR (Clear); Bilirubin,Urine Negative (Negative); Blood, Urine Negative (Negative); Color,Urine YELLOW (Yellow); Glucose,Urine (UA) 3+ (Negative); Ketones,Urine Negative (Negative); Leukocyte Esterase,Urine Negative (Negative); Nitrate,Urine Negative (Negative); Protein,Urine Negative (Negative); Specific Gravity, Urine 1.025 (1.005-1.030); Urobilinogen,Urine 0.2 EU/dl (0.2)
--- NOTE | 2021-09-11 18:53 | PC.NURSE ---
IV established and blood sent to the lab. urine sent to the lab.
[2021-09-11 19:08] LABS: Squamous Epithelial Cell,Urine Occasional #/hpf (0-5)
[2021-09-11 20:30] VITALS: BP 145/78; PULSE 61; RESP 16; TEMP 36.5; O2SAT 97
[2021-09-11 20:38] VITALS: BP 176/92; PULSE 68; RESP 16; O2SAT 100
== END 2021-09-11 20:39 | disposition home or self-care (01) ==
PROVIDERS: Emergency Provider Emergency Medicine; PCP Family Medicine
DX: R10.13 Epigastric pain (principal); K86.1 Other chronic pancreatitis; E11.9 Type 2 diabetes mellitus without complications; Z79.4 Long term (current) use of insulin; I10 Essential (primary) hypertension; J44.9 Chronic obstructive pulmonary disease, unspecified; F17.210 Nicotine dependence, cigarettes, uncomplicated
CPT/HCPCS: 74177; 80053; 81001; 83690; 85025; 96361; 96374; 96375; 96376; 99284; J2405; Q9967

== ENCOUNTER 2021-10-09 10:00 | Outpatient (RCR) | payer OTHER, SELFPAY | END 2021-10-09 11:00 | disposition home or self-care (01) | LOC: OT 10:00 | PROVIDERS: PCP Family Medicine; Visit Provider Family Medicine | DX: M77.8 Other enthesopathies, not elsewhere classified (principal); M25.531 Pain in right wrist | CPT/HCPCS: 97010; 97014; 97035; 97110; 97140; 97166; G0283 ==